=== PATIENT | male | born 1985 | race Caucasian/White ===

== ENCOUNTER 2018-06-17 11:36 | Inpatient (IN) | payer OTHER ==
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
[2018-06-17 12:52] LABS: PLATELET COUNT 210 10^3/uL (150-400)
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
--- NOTE | 2018-06-17 15:31 | ASMTTCLDSP ---
TLC Discharge Disposition Disposition: Answers: Admit Disposition Notes: Notes: Admit 3N. Discharge Concerns/Recommendations: Notes: In consultation with [facility] ED physician, Marito Alba MD and on-call psychiatrist, Stephon Moore MD, both concurred that pt appears to meet 27-65 criteria requiring psychiatric hospitalization as pt appears to be gravely disabled due to a mental illness condition. Pt was given (but refused to sign) the 3N prohibited belongings list while in the ED. Was patient given the Answers: Yes Inpatient Behavioral Health Prohibited Belongings List while in the ED? For inpatient Stephon Moore MD admission, the following psychiatrist agreed to accept patient for admission to Behavioral Health ([facility]): Type of Hold: Answers: M1/72-hour Hold Hold initiated by: Answers: Court Order Date Signed: 06/17/2018 03:31 PM Electronically Signed By:Raúl Martinez
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
[2018-06-17] MEDS ORDERED: ACETAMINOPHEN 325 MG TAB PO PRN (19:29)
[2018-06-17] MEDS ORDERED: MAGNESIUM HYDROXIDE 30 ML UDCUP PO PRN (19:32)
--- NOTE | 2018-06-18 08:52 | PDMN ---
Medical Necessity Medical necessity: Pt meets INPT criteria per MD as of 06/18/18 and [facility] [id number] Other Psychotic Disorders, Adult: Inpatient Care (est. LOS >2 [place] for eval/tx of unspecified schizophrenia spectrum and other psychotic disorder; on M1 hold).
--- NOTE | 2018-06-18 14:20 | ASMTCMCOM ---
CM Note CM Note Notes: Attempted to introduce cc and complete MTP. Patient observed sitting in frontal laid back position, legs john cross position, frontal gaze. Pt then refused discussion and completion of MTP. Date Signed: 06/18/2018 02:19 PM Electronically Signed By:Iram Dorsey
--- NOTE | 2018-06-19 08:46 | BAPA ---
DATE OF SERVICE: 06/18/2018 HISTORY OF PRESENT ILLNESS: The patient is a 33-year-old male with a history of substance dependence and recurrent psychosis. He was brought to the hospital by police after his father obtain ed a court ordered evaluation due to recurrent and severe psychosis. The patient apparently had been declining for several weeks, and had recently lost his job. He was staying at a basement apartment at his father's home, which he had been doing for some time, but had become increasingly agitated. Soumya mccallum was reportedly not sleeping, was unable to obtain food for himself as he was eating as part of his job, and he did not have access to money. The patient states that he has over $7000 in his checking account and that he was well able to get food if he wanted to, but then goes into a partial story abo ut not eating on purpose. He is unable to explain this further. He reportedly was drilling holes in the basement ceiling to somehow access his father's home above. This was due in part to the fact th at his father had locked the doors because patient was yelling and screaming at him at all hours of t he day and night. The patient states that he was doing this because his father is not really his fat her but "just a jenn named James." He states he believes that James has killed his father and taken ove r his body. He states that he believes that James is "some kind of spiritual being" and does not trus t him. He states this is why he was angry at him. He also states that he fashioned a spear himself and believes this spear has some kind of special goode that he can fight off spiritual beings. He h as been walking a perimeter around his father's home with the spear in order to protect it from these beings. When asked if his father is one of those beings and if he might seek to harm his father, he does not answer the question. Patient's father felt in fear of his life, however, which was why he sought the court order. The patient states that he does not believe he has a mental illness and does not require any treatment at this time. When asked about his cannabis use, which has been heavy in the past, he states he is "only using CBDs prescribed by my doctor." He repeatedly denies using any other forms THC. He denies any other drug use. PAST PSYCHIATRIC HISTORY: Significant for 1 previous hospitalization here from 12/11 to 01/15/2015. He was treated by Dr. Yanna Palma at that time. His discharge diagnoses were psychosis, NOS; can nabis use disorder, severe; homeless; unemployment; conflicts with family member and legal problems. He discharged with a GAF of 50. ALLERGIES: No known medical allergies. CURRENT MEDICATIONS: None. PAST MEDICAL HISTORY: Essentially noncontributory. SOCIAL HISTORY: Patient lives in an apartment in the basement of his father's home. The financial a rrangements of that are unknown to me. 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 His father apparently indicated that he was fired, but he states he quit, essentially because he did not want to work there anymore. He r eports having over $7000 in a checking account and having a check card to access that. He denies any legal problems or other stresses at this time. SUBSTANCE ABUSE HISTORY: Patient has a history of heavy cannabis use, though denies any current use. FAMILY HISTORY: Noncontributory per patient's report. ADMISSION LABORATORY: CBC shows a white count up at 9.67 with an H and H up at 18 and 51.5. Serum c hemistries are normal with the exception of a nonfasting glucose up at 147. Lipid profile is normal. Liver function is normal. TSH is not found. Urine drug screen is negative for all substances incl uding marijuana. MENTAL STATUS EXAMINATION: Reveals a very thin male, lying in a hospital bed under the [facility]. I enter with a clinical resident to interview the patient in his room at 11:30. He does wake u p and makes some eye contact. He is able to interact appropriately, though is very guarded, does not answer many questions, and the answers he gives are typically only a few words. His affect is const ricted, stable, and appropriate. His mood is described as "fine." His thought process is linear and goal directed, though he does appear to have either some poverty of thought or internal preoccupatio n and/or blocking, so he has a rather abbreviated thought process. 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 He denies hearing any voices, though does mention several sreedhar es he hears the voices of "spiritual beings" at times. When asked if can communicate with these madison gs, he states, "I can communicate with anyone." He is alert and oriented to person, place, time, and situation, and his sensorium is clear. There is no evidence of intoxication or delirium. The patie nt's intellect appears to be average as evidenced by his fund of knowledge, vocabulary, and education al history. His insight and judgment appear to be poor. He denies any thoughts of suicide, homicide , or violence. 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 The patient is a 33-year-old male with history of recurrent and now probably chronic psycho sis. The origins seem to be in his heavy and chronic cannabis use, though he has negative for that t damir. I do not in any way trust our marijuana screen as it has been obviously wrong numerous times i n the past. Regardless, he is actively psychotic at this time and represents a clear and ongoing as well as imminent risks to his father. He believes his father is a malevolent spiritual being that he has fashioned his own special weapon in order to kill. Why his father did not just call the police instead of seeking a court order, I do not know, but the patient is here under the court order at thi s time. We will continue to evaluate him and make a decision in regard to further involuntary treatm ent at the expiration time. PLAN: 1. One admit to the [facility] inpatient unit on an M1 hold on a court ordered hold. 2. We will offer the patient Zyprexa as a p.r.n., though he is refusing all medicines at this time. 3. We will provide observation and serial clinical interviews to better understand his current situa tion. 4. Eventually, will hopefully conduct family meetings in order to provide better understanding about the dynamic and his discharge plan. Estimated length of stay is 7-10 days. /[id number]/MODL
--- NOTE | 2018-06-19 10:16 | ASMTBHMTP ---
Master Treatment Plan Master Treatment Plan Answers: Impaired Reality for: Date: 06/19/2018 Diagnosis on Admission: Unspecified Schizophrenia Spectrum and Other Psychotic Disorder Expected length of stay: 3-5 Days Reason for admission: Notes: Per [facility] Evaluation - Pt. is a 33 year old, single, unemployed, male with known history of psychosis NOS and cannabis use disorder, brought to [facility] ED on court ordered hold. Pt. reported to sfdc architect that he was not sure who initiated the petition and he did not understand why he was in ED. Per petitioners statement from father, pt was hospitalized and certified in 2015 until May 18, 2017. When he was released, he agreed to take medications voluntarily. Father believes that pt. is no longer taking his medication and since 2017, pt has had sporadic episodes of strange behavior but in the last month, his mental condition has become worse and father has grown very fearful of him. Father reported that pt currently lives in father's home, pt. lives on the first floor and father lives on the second floor. Pt. has his own entrance into the apartment. Father keeps his living area locked due for fear for his own safety. Father reported that pt has not appeared to have showered or shaved in the last couple of weeks and is concerned that pt. has not been eating. 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 To father's knowledge, pt has not been to work in two weeks and believes that pt has last his job and no longer has access to food or money. He sleeps all day and stays up all night. Pt. has stolen multiple items and money from father within the last month. On several occasions, pt has tried to drill through the ceiling to gain access to fathers living area. Pt. has broken doors in his attempts to get in. On a daily basis, father reported that pt yells and scream at father from his apartment and is constantly banding on the brown, going on for more than an hour at a time. When father asks pt. why he wants in, pt will not tell father. This usually occurs in the middle of the night. Father reported that pt has been walking around with a spear which also concerns father greatly. Yesterday morning, pt turned power to the house from the breaker in his living area. Father is afraid to go into pt's apartment to turn the power back on while pt is in the apartment. Without power, father's telephone does not work. Lately, pt has had violent outbursts toward his father and father reports not feeling safe with pt residing apartment above pt. His father locks himself in his own apartment but reports that p. has, on multiple occasions, attempted to break into [facility]'s living quarters. Pt. was tazed by police because he was trying to run away from them Patient's stated presenting problems: Notes: Patient refused to answer Patient's goals for treatment: Notes: Patient refused to answer Patient's strengths: Notes: Patient refused to answer Identify supports outside of hospital: Notes: Patient refused to answer Discharge criteria: Notes: Psychotic symptoms will be reduced or eliminated with return to baseline functioning in affect, thinking and behavior prior to discharge. Initial disposition plan/considerations: Notes: Patient refused to answer Master Treatment Plan Required Signatures Psychiatrist signature: Answers: Jj Angel MD: RN on-shift signature: Answers: RN: Patient signature: Answers: Patient: Date Signed: 06/19/2018 10:15 AM Electronically Signed By:Sapphire Portillo
--- NOTE | 2018-06-19 16:22 | SOAPPROG ---
SOAP Progress Note Assessment/Plan: Assessment: 33 yo man with h/o schizophrenia who has not taken meds in quite awhile. He has been living with [facility] who claims he is afraid of patient's erratic moods and strange behavior. Plan: 06/19/18 16:19 1. Patient states he doesn't need meds b/c he doesn't have a mental health issue. However, he admits a long h/o psychotic disorder and treatment with antipsychotic meds in past. encouraged patient to take Risperdal m-tab at . fully explained the r/b/se's of med. 2. Patient is not attending to ADL's and has not bathed or washed his clothes in quite some time. 3. Will continue to observe patient and try to work with family and OP providers on d/c plan. Subjective: Patient is lying in bed fully dressed with blanket pulled up to his chin. He states that he stopped taking psych meds b/c "both my previous psychiatrists said I didn't need them." He insists that there is "nothing wrong with me" and doesn't need to be on psych meds. Patient is angry with his FOC for calling police. Patient was shutting off power, drilling holes in floor and walking around with sharp objects. FOC stated he had to keep his doors locked out of fear. Objective: Vital Signs Temp Pulse Resp BP Pulse Ox 36.6 C 62 14 99/54 L 97 06/19/18 06:00 06/19/18 06:00 06/19/18 06:00 06/19/18 06:00 06/19/18 06:00 MSE: Affect: Blunted Mood: "Fine" TP: Guarded, paucity, illogical TC: Denies any SI/HI, paranoid delusions present Insight/Judgment: Poor - Time Spent With Patient Time Spent With Patient: 15" - Pending Discharge Pending Discharge Within 24 Hours: No Pending Discharge Within 48 Hours: No ICD10 Worksheet Patient Problems: Problems Problem Status Onset Schizophrenia Acute
[2018-06-19] MEDS: RISPERIDONE 1 MG ODT TAB SL SCH (19:42)
--- NOTE | 2018-06-20 14:30 | ASMTCMCOM ---
CM Note CM Note Notes: Pt. was eating breakfast when CC approached him. Pt. reports feeling "alright". Pt. stated he slept "pretty good". Pt. reports eating well and attending groups; staff report pt. not attending any groups. Pt. reports not taking any medications currently. CC asked pt. about any goals while in the hospital, pt. stated "Not that I'd like to talk about". Pt. denied SI, HI, AVH and paranoia. CC asked pt. when he will stay upon discharge, pt. stated "chelle private". Pt. stated he is currently seeing a therapist and has an upcoming appointment. Pt. declined to stated when this appointment is and who it is with. Pt. presents as alert, very guarded, paranoid, with fair eye contact and lacking insight. Staff report pt. sleeping 6 hours and being withdrawn. Date Signed: 06/20/2018 02:29 PM Electronically Signed By:Sapphire Portillo
--- NOTE | 2018-06-20 16:19 | SOAPPROG ---
SOAP Progress Note Assessment/Plan: Assessment: 33 yo man with h/o schizophrenia who has not taken meds in quite awhile. He has been living with [facility] who claims he is afraid of patient's erratic moods and strange behavior. Plan: 06/19/18 16:19 1. Patient states he doesn't need meds b/c he doesn't have a mental health issue. However, he admits a long h/o psychotic disorder and treatment with antipsychotic meds in past. MD encouraged patient to take Risperdal m-tab at . MD fully explained the r/b/se's of med. 2. Patient is not attending to ADL's and has not bathed or washed his clothes in quite some time. 3. Will continue to observe patient and try to work with family and OP providers on d/c plan. PLAN: 06/20/18 16:15 1. Patient refused Risperdal last night. 2. Patient took 2 showers today. Wearing same clothes, but hair is alley cleaner. 3. Patient came out of room briefly for meals and watched a little TV in afternoon. Not attending groups. 4. MD looked in chart for M1, but only found Order for Psychiatric evaluation that was issued by [facility] on 06/16/18. MD requested staff clarify patient's legal status with court on Thursday. 5. Patient continues to be psychotic and gravely disabled and requires further inpatient stabilization. Subjective: Patient came out of his room briefly to watch a little TV. He also ate his meals in dining area. Otherwise, patient has isolated in his room. He did take 2 showers today, but has no change of clothes. He refused Risperdal last night and claims he doesn't need to be on meds according to "my last two psychiatrists." Patient has not taken meds or had a psychiatric appointment in quite a while. is still trying to get records from [facility], but it doesn't appear like patient is currently an open client with [facility]. Objective: Vital Signs Temp Pulse Resp BP Pulse Ox 36.6 C 62 14 99/54 L 97 06/19/18 06:00 06/19/18 06:00 06/19/18 06:00 06/19/18 06:00 06/19/18 06:00 MSE: Affect: Flat Mood: "OK" TP: Disorganized, illogical, paranoid TC: Denies any SI/HI Insight/Judgment: Impaired - Time Spent With Patient Time Spent With Patient: 15" - Pending Discharge Pending Discharge Within 24 Hours: No Pending Discharge Within 48 Hours: No ICD10 Worksheet Patient Problems: Problems Problem Status Onset Schizophrenia Acute
[2018-06-20] MEDS: RISPERIDONE 1 MG ODT TAB SL SCH (20:19)
--- NOTE | 2018-06-21 13:20 | ASMTCMCOM ---
CM Note CM Note Notes: Attempted to meet with patient to discuss progress and dc plan pt guarded stated "its private" and refused discussion Date Signed: 06/21/2018 01:19 PM Electronically Signed By:Iram Dorsey
--- NOTE | 2018-06-21 15:53 | SOAPPROG ---
SOAP Progress Note Assessment/Plan: Assessment: Plan: 06/21/18 15:54 Psychosis: Remains quiet ill. Will petition for involuntary medications. Subjective: Pt seen, discussed with staff, chart reviewed. He continues to isolate in his room, refusing to interact with others or participate in therapies. Refuses all medications. I attempted to interview him, but he refused to come out from under the sheets. I discussed with/to him that he was on a STC at this point due to his mental illness and that I believe medications are medically necessary. I asked him repeatedly if he had any questions or preferences and he did not answer. I then informed him I would be petitioning the court for involuntary medications and he again did not reply. Objective: Vital Signs Temp Pulse Resp BP Pulse Ox 36.7 C 70 14 103/57 L 96 06/21/18 06:00 06/21/18 06:00 06/21/18 06:00 06/21/18 06:00 06/21/18 06:00 MSE: Lying in bed under sheet. Peeks head out once to reveal disheveled hair, ability to make eye contact. Does not speak or answer questions. Unable to assess current thought process or level of psychosis. - Time Spent With Patient Time Spent With Patient: 15" ICD10 Worksheet Patient Problems: Problems Problem Status Onset Schizophrenia Acute
[2018-06-21] MEDS: RISPERIDONE 1 MG ODT TAB SL SCH (18:46)
--- NOTE | 2018-06-22 17:33 | SOAPPROG ---
SOAP Progress Note Assessment/Plan: Assessment: Plan: 06/21/18 15:54 Psychosis: Remains quiet ill. Will petition for involuntary medications. 06/22/18 17:32 Psychosis: No change in clinical condition. Continues to refuse antipsychotic medications. Letter for COM submitted. Subjective: Pt seen, discussed with staff. Remains isolative, paranoid, internally focused. Continues to refuse to interact with staff. Took a three hour shower this morning, refusing to respond to staff's questions. Eating poorly. Objective: Vital Signs Temp Pulse Resp BP Pulse Ox 36.6 C 62 15 96/51 L 96 06/22/18 06:00 06/22/18 06:00 06/22/18 06:00 06/22/18 06:00 06/22/18 06:00 MSE: In shower. Refuses to answer questions. - Time Spent With Patient Time Spent With Patient: 15" ICD10 Worksheet Patient Problems: Problems Problem Status Onset Schizophrenia Acute
[2018-06-22] MEDS: RISPERIDONE 1 MG ODT TAB SL SCH (19:01)
[2018-06-23] MEDS: NICOTINE POLACRILEX 2 MG GUM B PRN ×3 (11:03→19:01)
--- NOTE | 2018-06-23 11:30 | ASMTCMCOM ---
CM Note CM Note Notes: The patient participated in clinical treatment team rounds;the team discussed his plan of care including decreasing psychotic symptoms and paranoia. The patient denied symptoms and has been refusing medication; a [facility] letter was sent 06/22/18. With regard to psychiatric medications, the patient stated "They shrink your brain, cause severe issues with metabolism, and problems with heart health; I prefer more holistic measures." The patient requested that we do not contact his OP team at [facility] because he would like to keep his providers separate. The patient reported that prior to admission, the patient's father was "shooting holes in the wall and floor. He seemed to be processing other people's thoughts and is a different person. I've seen him go through these stages several times in his life." He denied harboring ill will toward his father; who raised concern due to the patient's spear being in the household. The patient stated, "That's just my spear that I carry around. It's just a spear." Date Signed: 06/23/2018 11:30 AM Electronically Signed By:Joanne Charlton
--- NOTE | 2018-06-23 13:13 | SOAPPROG ---
SOAP Progress Note Assessment/Plan: Assessment: Plan: 06/21/18 15:54 Psychosis: Remains quiet ill. Will petition for involuntary medications. 06/22/18 17:32 Psychosis: No change in clinical condition. Continues to refuse antipsychotic medications. Letter for COM submitted. 06/23/18 13:14 Psychosis: REmains psychotic. Refuses all meds. [facility]. Await COM hearing. Subjective: Pt seen, discussed with staff, interviewed in Treatment Team meeting. He is more interactive today, though is oppositional, argumentative in meeting. He repeatedly asks why we are holding him or what symptoms he has that we want to treat with meds. He continues to refuse psychotropic meds stating, "I want something wholistic." He refuses to allow us to involve his father or MHP's. He states his father is "mentally decayed" and unable to participate. He states he wants to "keep my mom at a distance." Continues to refuse meds and generally isolate in his room. Objective: Vital Signs Temp Pulse Resp BP Pulse Ox 36.5 C 63 14 91/53 L 96 06/23/18 06:00 06/23/18 06:00 06/23/18 06:00 06/23/18 06:00 06/23/18 06:00 Poorly groomed, guarded, oppositional. Affect is constricted, stable. Mood is "bad." TP is generally disorganized. TC reveals continued paranoia, especially in regards to his parents and treatment team. - Time Spent With Patient Time Spent With Patient: 25" ICD10 Worksheet Patient Problems: Problems Problem Status Onset Schizophrenia Acute
[2018-06-23] MEDS: RISPERIDONE 1 MG ODT TAB SL SCH (20:47)
--- NOTE | 2018-06-24 11:08 | SOAPPROG ---
SOAP Progress Note Assessment/Plan: Assessment: Plan: 06/21/18 15:54 Psychosis: Remains quiet ill. Will petition for involuntary medications. 06/22/18 17:32 Psychosis: No change in clinical condition. Continues to refuse antipsychotic medications. Letter for COM submitted. 06/23/18 13:14 Psychosis: REmains psychotic. Refuses all meds. [facility]. Await COM hearing. 06/24/18 11:06 Psychosis: Calmer, though remains paranoid, guarded, non-compliant. Will continue to offer meds, await COM hearing. Subjective: Pt seen, discussed with staff. Remains argumentative and oppositional. Continues to refuse medications. Denies any psychiatric sx's. Continues to state he is being persecuted by his father. Objective: Vital Signs Temp Pulse Resp BP Pulse Ox 36.7 C 60 16 99/71 L 98 06/24/18 06:00 06/24/18 06:00 06/24/18 06:00 06/24/18 06:00 06/24/18 06:00 MSE: Guarded, anxious, oppositional. Affect is constricted, stable. Mood is "fine." TP is perseverative, refuses to answer most question, argumentative. TC reveals continued paranoia, AH's. - Time Spent With Patient Time Spent With Patient: 15" ICD10 Worksheet Patient Problems: Problems Problem Status Onset Schizophrenia Acute
--- NOTE | 2018-06-24 12:50 | ASMTCMCOM ---
CM Note CM Note Notes: Ct. was in bed when CC entered his room. Ct. said that he is doing OK but was not interested in engaging in conversation beyond that. Date Signed: 06/24/2018 12:47 PM Electronically Signed By:Nancy Schmitt
[2018-06-24] MEDS: NICOTINE POLACRILEX 2 MG GUM B PRN ×3 (13:20→17:39)
[2018-06-24] MEDS: RISPERIDONE 1 MG ODT TAB SL SCH (20:13)
[2018-06-25] MEDS: NICOTINE POLACRILEX 2 MG GUM B PRN ×4 (11:00→22:24)
--- NOTE | 2018-06-25 12:18 | ASMTCMCOM ---
CM Note CM Note Notes: The patient refused to speak with this designer/writer. This designer/writer observed that the patient's brown and ceilings were adorned with pieces of paper and tissue using an unknown substance that causes something to adhere. The nurse and mental health worker were notified and the paper was removed for safety purposes. Staff explained to the patient that he is not being monitored in his room or bathroom. The patient did not explain whether the paper was positioned purposefully. Date Signed: 06/25/2018 12:07 PM Electronically Signed By:Joanne Charlton
--- NOTE | 2018-06-25 16:21 | SOAPPROG ---
SOAP Progress Note Assessment/Plan: Assessment: Plan: 06/21/18 15:54 Psychosis: Remains quiet ill. Will petition for involuntary medications. 06/22/18 17:32 Psychosis: No change in clinical condition. Continues to refuse antipsychotic medications. Letter for [employer] submitted. 06/23/18 13:14 Psychosis: REmains psychotic. Refuses all meds. [facility]. Await [employer] hearing. 06/24/18 11:06 Psychosis: Calmer, though remains paranoid, guarded, non-compliant. Will continue to offer meds, await [employer] hearing. 06/25/18 16:21 Psychosis: Uncooperative. [facility]. Await [employer] hearing. Now postponed until later in the week. Subjective: Pt seen, discussed with staff. Lying in his bed with his eyes closed masturbating. Does not respond to my questions or verbal prompts. Refuses to interact. REmains oppositional with staff. Unclear if his estate planning attorney was able to contact him. Objective: Vital Signs Temp Pulse Resp BP Pulse Ox 36.5 C 68 14 100/59 L 98 06/25/18 06:00 06/25/18 06:00 06/25/18 06:00 06/25/18 06:00 06/25/18 06:00 MSE: Disheveled, lying in bed. Eyes closed, non-responsive. Masturbating openly, uncovered. - Time Spent With Patient Time Spent With Patient: 15" ICD10 Worksheet Patient Problems: Problems Problem Status Onset Schizophrenia Acute
[2018-06-25] MEDS: RISPERIDONE 1 MG ODT TAB SL SCH (18:39)
--- NOTE | 2018-06-26 07:51 | SOAPPROG ---
JUD Progress Note Assessment/Plan: Assessment: 33yo with schizoaffective d/o, refusing meds 06/26/18 11:59 Slept 9.5hr. has been nude in room, masturbating, sticking things on brown, flooding floors, taking meal tray in room against instructions, lying in bed in manner such as if "mooning" staff during room checks. refusing psychotropic meds. discussed options with staff. decided to start on behavior plan with reverse room lock mo during meal times and group times. denied any physical c/o. denied AH/SI. not interested in engaging in interview except to request multivitamins, vit D3, Calcium, omega 3 FA, and nicotine patch. PLAN: cont to offer meds. Risp 1mg hs. not taking. okay MVI. nicotine patch if prefers to gum has COM hearing next week Objective: Vital Signs Temp Pulse Resp BP Pulse Ox 36.5 C 71 16 111/64 96 06/26/18 06:00 06/26/18 06:00 06/26/18 06:00 06/26/18 06:00 06/26/18 06:00 - Time Spent With Patient Time Spent With Patient: 10min - Pending Discharge Pending Discharge Within 24 Hours: No Pending Discharge Within 48 Hours: No ICD10 Worksheet Patient Problems: Problems Problem Status Onset Schizophrenia Acute
[2018-06-26] MEDS: NICOTINE POLACRILEX 2 MG GUM B PRN ×3 (09:11→19:21)
[2018-06-26] MEDS: NICOTINE 7 MG/24 HR PATCH TD SCH (12:23)
--- NOTE | 2018-06-26 15:45 | ASMTCMCOM ---
CM Note CM Note Notes: Pt. declined to meet with CC. Staff report pt. sleeping 9.5 hours and needing a reverse room restriction due to his behaviors today. Date Signed: 06/26/2018 03:45 PM Electronically Signed By:Sapphire Portillo
[2018-06-26] MEDS: RISPERIDONE 1 MG ODT TAB SL SCH (21:55)
[2018-06-27] MEDS: NICOTINE POLACRILEX 2 MG GUM B PRN ×4 (00:06→12:25)
[2018-06-27] MEDS: MELATONIN 3 MG TAB PO PRN (00:06)
[2018-06-27] MEDS: MULTIVITAMINS 1 EACH TAB PO SCH (09:00)
[2018-06-27] MEDS: OLANZapine 5 MG TAB PO PRN (10:23)
[2018-06-27] MEDS: NICOTINE 7 MG/24 HR PATCH TD SCH (10:49)
[2018-06-27] MEDS: RISPERIDONE 1 MG ODT TAB SL SCH (12:26)
--- NOTE | 2018-06-27 15:05 | ASMTCMCOM ---
CM Note CM Note Notes: Pt. refused to speak to CC. Pt. gave a thumbs up when asked if he slept well. Pt. nodded yes when asked if he is getting enough to eat. Pt. stopped responding to CC at this point. CC later approached pt. to sign an WILTON for his father, to confirm that pt. is allowed back home. Pt. stated "it's my hosue" and refused to sign WILTON at this time. Pt. presents as alert, very guarded, selectively mute, uncooperative, and lacking insight. Staff report pt. sleeping 5 hours and refusing his Risperdal last night. Pt. is also on several restrictions including a reverse room and gum restriction. Date Signed: 06/27/2018 03:05 PM Electronically Signed By:Sapphire Portillo
[2018-06-27] MEDS: LORazepam 0.5 MG TAB PO PRN (16:06)
--- NOTE | 2018-06-27 19:26 | SOAPPROG ---
SOAP Progress Note Assessment/Plan: Assessment: 33yo with schizoaffective d/o, refusing meds 06/26/18 11:59 Slept 9.5hr. has been nude in room, masturbating, sticking things on brown, flooding floors, taking meal tray in room against instructions, lying in bed in manner such as if "mooning" staff during room checks. refusing psychotropic meds. discussed options with staff. decided to start on behavior plan with reverse room lock mo during meal times and group times. denied any physical c/o. denied AH/SI. not interested in engaging in interview except to request multivitamins, vit D3, Calcium, omega 3 FA, and nicotine patch. PLAN: cont to offer meds. Risp 1mg hs. not taking. okay MVI. nicotine patch if prefers to gum has COM hearing next week 06/27/18 19:18 slept 5hr actually accepted offer of zyprexa 5mg prn this AM. sleepy by midday. requiring limits around misusing TV controls. lying on floor by wall in hallway "resting" and asking for wellbutrin. stronger nicotine gum. fair eye contact. mood "fine" affect constricted. denied AH. denied SI. dismissive of conversation and attempt for interview. not appearing to respond to internal stimuli. PLAN: cont to offer meds. offer Risp 1mg bid, since indicated he may try med in AM. d/c patch. prefers to continue with gum, wants stronger gum. was using gum to stick things onto brown, now must turn in gum for next piece. requesting hourly. has COM hearing next week cont on reverse room lock. adding no writing utensils since room/safety checks revealed pt hiding pencils from art group Objective: Vital Signs Temp Pulse Resp BP Pulse Ox 36.7 C 76 14 111/67 94 06/27/18 06:00 06/27/18 06:00 06/27/18 06:00 06/27/18 06:00 06/27/18 06:00 - Time Spent With Patient Time Spent With Patient: 15min - Pending Discharge Pending Discharge Within 24 Hours: No Pending Discharge Within 48 Hours: No ICD10 Worksheet Patient Problems: Problems Problem Status Onset Schizophrenia Acute
[2018-06-28] MEDS: MULTIVITAMINS 1 EACH TAB PO SCH (08:57)
[2018-06-28] MEDS: OLANZapine 5 MG TAB PO PRN ×2 (08:58→16:30)
[2018-06-28] MEDS: NICOTINE POLACRILEX 2 MG GUM B PRN ×6 (08:59→20:53)
[2018-06-28] MEDS: RISPERIDONE 1 MG ODT TAB SL SCH ×3 (09:11→17:44)
[2018-06-28] MEDS: LORazepam 0.5 MG TAB PO PRN ×3 (10:57→20:54)
--- NOTE | 2018-06-28 11:21 | SOAPPROG ---
SOAP Progress Note Assessment/Plan: Assessment: Plan: 06/21/18 15:54 Psychosis: Remains quiet ill. Will petition for involuntary medications. 06/22/18 17:32 Psychosis: No change in clinical condition. Continues to refuse antipsychotic medications. Letter for COM submitted. 06/23/18 13:14 Psychosis: REmains psychotic. Refuses all meds. [facility]. Await COM hearing. 06/24/18 11:06 Psychosis: Calmer, though remains paranoid, guarded, non-compliant. Will continue to offer meds, await COM hearing. 06/25/18 16:21 Psychosis: Uncooperative. [facility]. Await COM hearing. Now postponed until later in the week. 06/28/18 11:21 Psychosis: No change. Will continue to offer scheduled Risperdal and PRN Zyprexa. Await hearing for COM. Continue behavioral plan. Subjective: Pt seen, discussed with staff, chart reviewed. Events of weekend noted. Placed on reverse room protocol with some benefit inc: decreased sexual acting out, less vandalism. He refuses to talk to me stating he is "waiting for the dog" (service animal.) He does listen when I talk to him about the upcoming involuntary meds hearing on 07/06/18. He has taken several doses of Zyprexa or Risperdal over the weekend and I discussed with him the possibility of continuing these on a voluntary or stipulated basis. He states he will "think about it." Objective: Vital Signs Temp Pulse Resp BP Pulse Ox 36.4 C 76 16 101/61 98 06/28/18 06:00 06/28/18 06:00 06/28/18 06:00 06/28/18 06:00 06/28/18 06:00 MSE: Calm, guarded. Sitting in day room. Affect is constricted, stable. Mood is "OK." TP abbreviated. TC reveals continued paranoia, internal preoccupation. - Time Spent With Patient Time Spent With Patient: 15" ICD10 Worksheet Patient Problems: Problems Problem Status Onset Schizophrenia Acute
--- NOTE | 2018-06-28 11:51 | ASMTCMCOM ---
CM Note CM Note Notes: Pt. refused to speak with CC. Pt. only nodded yes or no to all questions. Pt. nodded yes to getting enough to eat. Pt. nodded yes to sleeping well and attending groups. Pt. shrugged when asked if there were any issues with his medications. Pt. nodded no to SI, HI, AVH and paranoia. Pt. stopped responding to CC at this point. Pt. presents as alert, very guarded, selectively mute, uncooperative and lacking eye contact. Staff report pt. sleeping 12 hours, hiding items around the unit, and taking only some of his medications. Date Signed: 06/28/2018 11:50 AM Electronically Signed By:Sapphire Portillo
[2018-06-29] MEDS: MULTIVITAMINS 1 EACH TAB PO SCH (09:13)
[2018-06-29] MEDS: RISPERIDONE 1 MG ODT TAB SL SCH ×2 (09:13→21:06)
[2018-06-29] MEDS: NICOTINE POLACRILEX 2 MG GUM B PRN (09:17)
[2018-06-29] MEDS: LORazepam 0.5 MG TAB PO PRN ×3 (11:58→21:09)
--- NOTE | 2018-06-29 13:00 | ASMTCMCOM ---
CM Note CM Note Notes: Pt. refused to speak with CC. Pt. nodded his head yes or no when asked questions. Pt. nodded yes when asked if he is sleeping well and attending groups. Pt. nodded yes when asked if he needs more food on his trays. Pt. nodded no when asked if there are any issues with his medications. Pt nodded no to SI, HI, AVH and paranoia. CC explained to pt. the need for him to participate in his treatment and encouraged him to speak with the CC tomorrow. Pt. presents as alert, guarded, resistive to treatment, and lacking insight. Staff report pt. sleeping 7.5 hours. Date Signed: 06/29/2018 12:53 PM Electronically Signed By:Sapphire Portillo
[2018-06-29] MEDS: OLANZapine 5 MG TAB PO PRN (15:29)
--- NOTE | 2018-06-29 16:59 | SOAPPROG ---
SOAP Progress Note Assessment/Plan: Assessment: Plan: 06/21/18 15:54 Psychosis: Remains quiet ill. Will petition for involuntary medications. 06/22/18 17:32 Psychosis: No change in clinical condition. Continues to refuse antipsychotic medications. Letter for COM submitted. 06/23/18 13:14 Psychosis: REmains psychotic. Refuses all meds. [facility]. Await COM hearing. 06/24/18 11:06 Psychosis: Calmer, though remains paranoid, guarded, non-compliant. Will continue to offer meds, await COM hearing. 06/25/18 16:21 Psychosis: Uncooperative. [facility]. Await COM hearing. Now postponed until later in the week. 06/28/18 11:21 Psychosis: No change. Will continue to offer scheduled Risperdal and PRN Zyprexa. Await hearing for COM. Continue behavioral plan. 06/29/18 17:01 Psychosis: No change. Will [facility]. Await hearing for COM. Will observe as pt is more compliant with voluntary meds to determine whether or not he will regain capacity. Continue behavioral plan to limit acting out and vandalism. Subjective: Pt seen, discussed with staff. Out in dayroom per behavioral protocol, though minimally interactive with others. Refuses to talk to me again today. Refuses to allow me to talk to his mother who called today and asked for a call back. Refuses to discuss treatment. Has taken several more doses of PRN Zyprexa and the last five scheduled doses of Risperdal. Objective: Vital Signs Temp Pulse Resp BP Pulse Ox 36.6 C 73 14 108/53 L 95 06/29/18 06:00 06/29/18 06:00 06/29/18 06:00 06/29/18 06:00 06/29/18 06:00 MSE: Guarded, tense. Mute, refusing to talk to me or answer questions. Affect is constricted, stable. Mood is not stated. Appears to attend to IS. - Time Spent With Patient Time Spent With Patient: 15" ICD10 Worksheet Patient Problems: Problems Problem Status Onset Schizophrenia Acute
[2018-06-29] MEDS: MELATONIN 3 MG TAB PO PRN (21:09)
[2018-06-30] MEDS: NICOTINE POLACRILEX 2 MG GUM B PRN ×6 (07:29→19:54)
[2018-06-30] MEDS: RISPERIDONE 1 MG ODT TAB SL SCH ×3 (07:29→19:48)
[2018-06-30] MEDS: MULTIVITAMINS 1 EACH TAB PO SCH (07:29)
[2018-06-30] MEDS: LORazepam 0.5 MG TAB PO PRN ×2 (11:09→15:35)
[2018-06-30] MEDS: NICOTINE 21 MG/24 HR PATCH TD SCH (11:58)
[2018-06-30] MEDS: MAG HYDROX/AL HYDROX/SIMETH 30 ML UDCUP PO PRN ×2 (12:22→19:58)
--- NOTE | 2018-06-30 14:18 | ASMTCMCOM ---
CM Note CM Note Notes: Client still would not like to speak to this underwriter solicitation director. Court set for COM for next week. Date Signed: 06/30/2018 02:18 PM Electronically Signed By:Wilfrido Mcclain
[2018-06-30] MEDS: OLANZapine 5 MG TAB PO PRN (14:48)
--- NOTE | 2018-06-30 15:39 | SOAPPROG ---
SOAP Progress Note Assessment/Plan: Assessment: Plan: 06/21/18 15:54 Psychosis: Remains quiet ill. Will petition for involuntary medications. 06/22/18 17:32 Psychosis: No change in clinical condition. Continues to refuse antipsychotic medications. Letter for COM submitted. 06/23/18 13:14 Psychosis: REmains psychotic. Refuses all meds. [facility]. Await COM hearing. 06/24/18 11:06 Psychosis: Calmer, though remains paranoid, guarded, non-compliant. Will continue to offer meds, await COM hearing. 06/25/18 16:21 Psychosis: Uncooperative. [facility]. Await COM hearing. Now postponed until later in the week. 06/28/18 11:21 Psychosis: No change. Will continue to offer scheduled Risperdal and PRN Zyprexa. Await hearing for COM. Continue behavioral plan. 06/29/18 17:01 Psychosis: No change. Will [facility]. Await hearing for COM. Will observe as pt is more compliant with voluntary meds to determine whether or not he will regain capacity. Continue behavioral plan to limit acting out and vandalism. 06/30/18 15:39 Psychosis: Unchanged. [facility]. Await COM hearing. Subjective: Pt seen, discussed with staff. Refuses to talk to me or attend Treatment Team meeting. States, "I would prefer not" when asked. Sitting in day room, curled up in a ball in chair. Not interacting with others. Objective: Vital Signs Temp Pulse Resp BP Pulse Ox 36.6 C 69 14 106/55 L 94 06/30/18 06:00 06/30/18 06:00 06/30/18 06:00 06/30/18 06:00 06/30/18 06:00 MSE: Disheveled, guarded, uncoop. Affect is constricted, stable. Mood is not stated. TP is disorganized. TC reveals AH's/RIS, paranoia. Insight and judgment remain very poor. - Time Spent With Patient Time Spent With Patient: 15" ICD10 Worksheet Patient Problems: Problems Problem Status Onset Schizophrenia Acute
[2018-06-30] MEDS: PATCH REMOVAL 1 EA PATCH TD SCH (19:52)
[2018-07-01] MEDS: LORazepam 0.5 MG TAB PO PRN ×4 (08:09→20:28)
[2018-07-01] MEDS: NICOTINE 21 MG/24 HR PATCH TD SCH (08:09)
[2018-07-01] MEDS: MULTIVITAMINS 1 EACH TAB PO SCH (08:09)
[2018-07-01] MEDS: MAG HYDROX/AL HYDROX/SIMETH 30 ML UDCUP PO PRN ×3 (08:18→23:21)
[2018-07-01] MEDS: RISPERIDONE 1 MG ODT TAB SL SCH ×2 (08:35→21:55)
[2018-07-01] MEDS: buPROPion XL 150 MG TAB PO SCH (12:33)
[2018-07-01] MEDS: OMEGA-3 FATTY ACIDS 1,000 MG CAP PO SCH (12:33)
--- NOTE | 2018-07-01 14:17 | ASMTCMCOM ---
CM Note CM Note Notes: The patient reported wanting to meet with his street sweeper operator when she called to discussing visiting him on the unit; when the street sweeper operator arrived to meet with the patient he declined to meet with her. The patient is inconsistently complying with medication including this morning when the patient complied with the risperdal dose. The patient did not demonstrate insight into his upcoming court proceeding for court ordered treatment. He requested additional medications including Wellbutrin and vitamins. The patient is adhering to his room restriction; he reports attending groups. The patient is not a reliable historian at this time. Date Signed: 07/01/2018 02:17 PM Electronically Signed By:Joanne Charlton
[2018-07-01] MEDS: NICOTINE POLACRILEX 2 MG GUM B PRN ×5 (14:46→23:21)
--- NOTE | 2018-07-01 15:55 | SOAPPROG ---
SOAP Progress Note Assessment/Plan: Assessment: Plan: 06/21/18 15:54 Psychosis: Remains quiet ill. Will petition for involuntary medications. 06/22/18 17:32 Psychosis: No change in clinical condition. Continues to refuse antipsychotic medications. Letter for COM submitted. 06/23/18 13:14 Psychosis: REmains psychotic. Refuses all meds. [facility]. Await COM hearing. 06/24/18 11:06 Psychosis: Calmer, though remains paranoid, guarded, non-compliant. Will continue to offer meds, await COM hearing. 06/25/18 16:21 Psychosis: Uncooperative. [facility]. Await COM hearing. Now postponed until later in the week. 06/28/18 11:21 Psychosis: No change. Will continue to offer scheduled Risperdal and PRN Zyprexa. Await hearing for COM. Continue behavioral plan. 06/29/18 17:01 Psychosis: No change. Will [facility]. Await hearing for COM. Will observe as pt is more compliant with voluntary meds to determine whether or not he will regain capacity. Continue behavioral plan to limit acting out and vandalism. 06/30/18 15:39 Psychosis: Unchanged. [facility]. Await COM hearing. 07/01/18 15:58 Psychosis: Improved with Risperdal. 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 Subjective: Pt seen, discussed with staff. Asked to talk to me about "vitamins." He states he used to take B complex, [place] 3, Ca, vitamin D, and Wellbutrin. He interacts reasonably well, referring to his notes. He remains disorganized, however, frequently derailing and needing help returning to topic. He continues to state he will return to his father's home on d/c but believes his father has been replaced by a spiritual being named James or Satish and needs to leave the home so he can live there alone. He states he owns the house outright and deserves to live there alone. Continues to take Risperdal and occasional Zyprexa PRN. Objective: Vital Signs Temp Pulse Resp BP Pulse Ox 36.7 C 64 14 99/51 L 94 07/01/18 06:00 07/01/18 06:00 07/01/18 06:00 07/01/18 06:00 10/04/18 06:00 - Time Spent With Patient Time Spent With Patient: 25" ICD10 Worksheet Patient Problems: Problems Problem Status Onset Schizophrenia Acute
[2018-07-01] MEDS: MELATONIN 3 MG TAB PO PRN (21:57)
[2018-07-01] MEDS: PATCH REMOVAL 1 EA PATCH TD SCH (22:09)
[2018-07-02] MEDS: NICOTINE 21 MG/24 HR PATCH TD SCH ×2 (06:20→08:25)
[2018-07-02] MEDS: NICOTINE POLACRILEX 2 MG GUM B PRN ×4 (06:22→21:21)
[2018-07-02] MEDS: buPROPion XL 150 MG TAB PO SCH (08:25)
[2018-07-02] MEDS: RISPERIDONE 1 MG ODT TAB SL SCH ×4 (08:25→23:23)
[2018-07-02] MEDS: OMEGA-3 FATTY ACIDS 1,000 MG CAP PO SCH (08:25)
[2018-07-02] MEDS: MULTIVITAMINS 1 EACH TAB PO SCH (08:25)
[2018-07-02] MEDS: LORazepam 0.5 MG TAB PO PRN ×3 (08:29→21:20)
[2018-07-02] MEDS: MAG HYDROX/AL HYDROX/SIMETH 30 ML UDCUP PO PRN ×2 (10:05→21:20)
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
[2018-07-02] MEDS: PATCH REMOVAL 1 EA PATCH TD SCH (22:19)
[2018-07-02] MEDS: MELATONIN 3 MG TAB PO PRN (22:21)
[2018-07-03] MEDS: MULTIVITAMINS 1 EACH TAB PO SCH (07:44)
[2018-07-03] MEDS: OMEGA-3 FATTY ACIDS 1,000 MG CAP PO SCH (07:44)
--- NOTE | 2018-07-03 07:51 | SOAPPROG ---
SOAP Progress Note Assessment/Plan: Assessment: Plan: 06/21/18 15:54 Psychosis: Remains quiet ill. Will petition for involuntary medications. 06/22/18 17:32 Psychosis: No change in clinical condition. Continues to refuse antipsychotic medications. Letter for COM submitted. 06/23/18 13:14 Psychosis: REmains psychotic. Refuses all meds. [facility]. Await COM hearing. 06/24/18 11:06 Psychosis: Calmer, though remains paranoid, guarded, non-compliant. Will continue to offer meds, await COM hearing. 06/25/18 16:21 Psychosis: Uncooperative. [facility]. Await COM hearing. Now postponed until later in the week. 06/28/18 11:21 Psychosis: No change. Will continue to offer scheduled Risperdal and PRN Zyprexa. Await hearing for COM. Continue behavioral plan. 06/29/18 17:01 Psychosis: No change. Will [facility]. Await hearing for COM. Will observe as pt is more compliant with voluntary meds to determine whether or not he will regain capacity. Continue behavioral plan to limit acting out and vandalism. 06/30/18 15:39 Psychosis: Unchanged. [facility]. Await COM hearing. 07/01/18 15:58 Psychosis: Improved with Risperdal. 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 07/03/18 07:52 Psychosis: Gradual improvement. [facility]. Subjective: LATE ENTRY FOR 06/02/18. Pt seen discussed with staff. Remains rather aloof, rarely interacting with others. Out in day room per behavioral plan. No acting out. Generally compliant with meds. No SE's noted. Objective: Vital Signs Temp Pulse Resp BP Pulse Ox 36.9 C 94 16 111/64 94 07/03/18 06:00 07/03/18 06:00 07/03/18 06:00 07/03/18 06:00 07/03/18 06:00 MSE: Marginally groomed, calm and coop. Affect is constricted, stable. Mood is "fine." TP is generally linear, though remains internally focused. TC reveals continued paranoid and grandiose delusions, IOR's. - Time Spent With Patient Time Spent With Patient: 15" ICD10 Worksheet Patient Problems: Problems Problem Status Onset Schizophrenia Acute
[2018-07-03] MEDS: buPROPion XL 150 MG TAB PO SCH (07:52)
[2018-07-03] MEDS: RISPERIDONE 1 MG ODT TAB SL SCH ×2 (07:52→20:55)
[2018-07-03] MEDS: LORazepam 0.5 MG TAB PO PRN ×4 (07:56→20:58)
[2018-07-03] MEDS: NICOTINE POLACRILEX 2 MG GUM B PRN ×5 (07:57→17:54)
[2018-07-03] MEDS: MAG HYDROX/AL HYDROX/SIMETH 30 ML UDCUP PO PRN ×2 (10:33→20:58)
--- NOTE | 2018-07-03 16:37 | SOAPPROG ---
SOAP Progress Note Assessment/Plan: Assessment: 33 yo man with h/o schizophrenia who has not taken meds in quite awhile. He has been living with [facility] who claims he is afraid of patient's erratic moods and strange behavior. Per Dr. Moore's recent note: 06/28/18 11:21 Psychosis: No change. Will continue to offer scheduled Risperdal and PRN Zyprexa. Await hearing for COM. Continue behavioral plan. 06/29/18 17:01 Psychosis: No change. Will [facility]. Await hearing for COM. Will observe as pt is more compliant with voluntary meds to determine whether or not he will regain capacity. Continue behavioral plan to limit acting out and vandalism. 06/30/18 15:39 Psychosis: Unchanged. [facility]. Await COM hearing. 07/01/18 15:58 Psychosis: Improved with Risperdal. 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 07/03/18 07:52 Psychosis: Gradual improvement. [facility]. Subjective: LATE ENTRY FOR 06/02/18. Pt seen discussed with staff. Remains rather aloof, rarely interacting with others. Out in day room per behavioral plan. No acting out. Generally compliant with meds. No SE's noted. PLAN: 07/03/18 16:33 1. Patient refused Risperdal this AM b/c it was in a different colored package. But he also said he wouldn't take it b/c it "causes me seizures." 2. Awaiting COM hearing on Thu07/05/18. 3. Still delusions about FOC refuses to have family meeting to plan d/c. 4. [facility] Subjective: Patient present in milieu d/t out of room program. He is on behavioral support plan to minimize his sexually inappropriate behavior and vandalism. He has been cooperative with plan this weekend. He refused to take Risperdal this AM and gave contradictory reasons. He has court hearing on Thursday for involuntary medications. Objective: Vital Signs Temp Pulse Resp BP Pulse Ox 36.9 C 94 16 111/64 94 07/03/18 06:00 07/03/18 06:00 07/03/18 06:00 07/03/18 06:00 07/03/18 06:00 MSE: Affect: Flat Mood: "OK" TP: Disorganized, illogical (meds "give me seizures" even though he's taken same med all week) TC: Denies SI/HI Insight/ Judgment: Impaired - Time Spent With Patient Time Spent With Patient: 15" - Pending Discharge Pending Discharge Within 24 Hours: No Pending Discharge Within 48 Hours: No ICD10 Worksheet Patient Problems: Problems Problem Status Onset Schizophrenia Acute
[2018-07-03] MEDS: MELATONIN 3 MG TAB PO PRN (20:58)
[2018-07-03] MEDS: PATCH REMOVAL 1 EA PATCH TD SCH (22:31)
[2018-07-04] MEDS: buPROPion XL 150 MG TAB PO SCH (07:39)
[2018-07-04] MEDS: RISPERIDONE 1 MG ODT TAB SL SCH ×2 (07:39→20:04)
[2018-07-04] MEDS: MULTIVITAMINS 1 EACH TAB PO SCH (07:39)
[2018-07-04] MEDS: OMEGA-3 FATTY ACIDS 1,000 MG CAP PO SCH (07:39)
[2018-07-04] MEDS: NICOTINE 21 MG/24 HR PATCH TD SCH (07:40)
[2018-07-04] MEDS: NICOTINE POLACRILEX 2 MG GUM B PRN ×7 (07:41→21:10)
[2018-07-04] MEDS: LORazepam 0.5 MG TAB PO PRN ×4 (07:45→21:08)
--- NOTE | 2018-07-04 10:04 | ASMTCMCOM ---
CM Note CM Note Notes: The patient reported that he does not plan to attend his court hearing tomorrow July 05. The patient reported that his father does not "want anything to do" with him. He stated that his father "is the one with mental health issues." The patient reported that the last time he attempted to have a family meeting with his father and his outpatient providers his father refused. He stated that "He had nothing to justify putting me on a MH hold; he must have been watching me through a small hole in the ceiling." Date Signed: 07/04/2018 10:03 AM Electronically Signed By:Joanne Charlton
--- NOTE | 2018-07-04 14:39 | SOAPPROG ---
SOAP Progress Note Assessment/Plan: Assessment: 33 yo man with h/o schizophrenia who has not taken meds in quite awhile. He has been living with FOC who claims he is afraid of patient's erratic moods and strange behavior. Per Dr. Moore's recent note: 06/28/18 11:21 Psychosis: No change. Will continue to offer scheduled Risperdal and PRN Zyprexa. Await hearing for COM. Continue behavioral plan. 06/29/18 17:01 Psychosis: No change. Will CCM. Await hearing for COM. Will observe as pt is more compliant with voluntary meds to determine whether or not he will regain capacity. Continue behavioral plan to limit acting out and vandalism. 06/30/18 15:39 Psychosis: Unchanged. CCM. Await COM hearing. 07/01/18 15:58 Psychosis: Improved with Risperdal. 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 07/03/18 07:52 Psychosis: Gradual improvement. CCM. Subjective: LATE ENTRY FOR 06/02/18. Pt seen discussed with staff. Remains rather aloof, rarely interacting with others. Out in day room per behavioral plan. No acting out. Generally compliant with meds. No SE's noted. PLAN: 07/03/18 16:33 1. Patient refused Risperdal this AM b/c it was in a different colored package. But he also said he wouldn't take it b/c it "causes me seizures." 2. Awaiting COM hearing on Thu07/05/18. 3. Still delusions about FOC refuses to have family meeting to plan d/c. 4. [facility] PLAN: 07/04/18 14:34 1. Patient took Risperdal this AM after prompting from RN. 2. Patient says he doesn't plan to go to court tomorrow. 3. Patient attended art group this AM, and maintained appropriate behavior. 4. No further incidents of sexually inappropriate behavior this w/e. 5. ST 6. COM hearing on Thursday. Subjective: Patient has been acting more appropriately in milieu and with peers this w/e. No incidents of masturbating or hiding art supplies. He asked RN if restrictions could be lifted so he could use bathroom in his room. MD asked patient about court tomorrow and he said he didn't want to go. MD asked if patient wanted to stipulate to COM, but he said "no." He said, "it doesn't matter if I stipulate or go to court, I'm taking my meds anyway." MD reminded patient he refused Risperdal yesterday AM, but he pointed out he took it this AM. Objective: Vital Signs Temp Pulse Resp BP Pulse Ox 36.6 C 86 14 113/59 L 94 07/04/18 06:00 07/04/18 06:00 07/04/18 06:00 07/04/18 06:00 07/04/18 06:00 MSE: Affect: Blunted Mood: "OK" TP: More linear and logical than before TC: Denies any SI/HI, still paranoid and believes FOC is an alien Insight/Judgment : Impaired - Time Spent With Patient Time Spent With Patient: 15" - Pending Discharge Pending Discharge Within 24 Hours: No Pending Discharge Within 48 Hours: No ICD10 Worksheet Patient Problems: Problems Problem Status Onset Schizophrenia Acute
[2018-07-04] MEDS: PATCH REMOVAL 1 EA PATCH TD SCH (20:04)
[2018-07-04] MEDS: MELATONIN 3 MG TAB PO PRN (21:08)
[2018-07-05] MEDS: OMEGA-3 FATTY ACIDS 1,000 MG CAP PO SCH (07:56)
[2018-07-05] MEDS: MULTIVITAMINS 1 EACH TAB PO SCH (07:56)
[2018-07-05] MEDS: LORazepam 0.5 MG TAB PO PRN ×4 (07:56→22:07)
[2018-07-05] MEDS: RISPERIDONE 1 MG ODT TAB SL SCH ×2 (07:57→21:07)
[2018-07-05] MEDS: buPROPion XL 150 MG TAB PO SCH (07:57)
[2018-07-05] MEDS: NICOTINE POLACRILEX 2 MG GUM B PRN ×8 (07:58→22:09)
[2018-07-05] MEDS: NICOTINE 21 MG/24 HR PATCH TD SCH (07:58)
--- NOTE | 2018-07-05 12:42 | ASMTCMCOM ---
CM Note CM Note Notes: According to [facility] staff, he was more verbal over the weekend. The patient reported a desire to contact his OP team. The patient reported that he doesn't need medication, although he is compliant, and that he does not intend to attend his court hearing which is scheduled for July 06 @ 15:30. This video game script writer reiterated the reasoning behind the proceeding; the patient lacked insight into his condition and his need for treatment. Date Signed: 07/05/2018 12:41 PM Electronically Signed By:Joanne Charlton
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
[2018-07-05] MEDS: MELATONIN 3 MG TAB PO PRN (22:22)
[2018-07-05] MEDS: PATCH REMOVAL 1 EA PATCH TD SCH (22:47)
[2018-07-06] MEDS: RISPERIDONE 1 MG ODT TAB SL SCH ×2 (08:40→20:49)
[2018-07-06] MEDS: MULTIVITAMINS 1 EACH TAB PO SCH (08:40)
[2018-07-06] MEDS: NICOTINE 21 MG/24 HR PATCH TD SCH (08:40)
[2018-07-06] MEDS: LORazepam 0.5 MG TAB PO PRN ×4 (08:40→21:46)
[2018-07-06] MEDS: OMEGA-3 FATTY ACIDS 1,000 MG CAP PO SCH (08:40)
[2018-07-06] MEDS: buPROPion XL 150 MG TAB PO SCH (08:40)
[2018-07-06] MEDS: NICOTINE POLACRILEX 2 MG GUM B PRN ×4 (08:40→13:31)
[2018-07-06] MEDS: MAG HYDROX/AL HYDROX/SIMETH 30 ML UDCUP PO PRN (13:42)
--- NOTE | 2018-07-06 19:20 | SOAPPROG ---
SOAP Progress Note Assessment/Plan: Assessment: Plan: 06/21/18 15:54 Psychosis: Remains quiet ill. Will petition for involuntary medications. 06/22/18 17:32 Psychosis: No change in clinical condition. Continues to refuse antipsychotic medications. Letter for COM submitted. 06/23/18 13:14 Psychosis: REmains psychotic. Refuses all meds. [facility]. Await COM hearing. 06/24/18 11:06 Psychosis: Calmer, though remains paranoid, guarded, non-compliant. Will continue to offer meds, await COM hearing. 06/25/18 16:21 Psychosis: Uncooperative. [facility]. Await [facility] hearing. Now postponed until later in the week. 06/28/18 11:21 Psychosis: No change. Will continue to offer scheduled Risperdal and PRN Zyprexa. Await hearing for COM. Continue behavioral plan. 06/29/18 17:01 Psychosis: No change. Will [facility]. Await hearing for COM. Will observe as pt is more compliant with voluntary meds to determine whether or not he will regain capacity. Continue behavioral plan to limit acting out and vandalism. 06/30/18 15:39 Psychosis: Unchanged. [facility]. Await COM hearing. 07/01/18 15:58 Psychosis: Improved with Risperdal. 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 07/03/18 07:52 Psychosis: Gradual improvement. CCM. 07/05/18 15:26 Psychosis: Continued gradual improvement. It remains doubtful that he will continue his meds after d/c. Will go to hearing for [facility] tomorrow to ask for [place]. 07/06/18 19:20 Psychosis: Continued gradual improvement. Stipulated to meds. WIll [facility]. Subjective: Pt seen, discussed with staff. Reports feeling "depressed." Asks to change to different antidepressant. I informed him that the bupropion had not had enough time to work. He stated, "It never worked for me before, I want something different." I agreed to increase to 300mg. Remains compliant with Risperdal. Asked to stipulate to involuntary meds if I would change Invega and Abilfy to Risperdal. I agreed. Objective: Vital Signs Temp Pulse Resp BP Pulse Ox 36.6 C 82 14 106/55 L 94 07/06/18 06:00 07/06/18 06:00 07/06/18 06:00 07/06/18 06:00 07/06/18 06:00 MSE: Calm, coop., guarded. Affect is constricted. Mood is "not too good." TP generally linear with some blocking. TC reveals continued delusional thinking. Continues to insist the man living in his father's home is not his father, but "James." Continues to believe he has to protect himself from "James". - Time Spent With Patient Time Spent With Patient: 25" ICD10 Worksheet Patient Problems: Problems Problem Status Onset Schizophrenia Acute
[2018-07-06] MEDS: MELATONIN 3 MG TAB PO PRN (20:49)
[2018-07-06] MEDS: PATCH REMOVAL 1 EA PATCH TD SCH (20:51)
[2018-07-07] MEDS: NICOTINE 21 MG/24 HR PATCH TD SCH (07:58)
[2018-07-07] MEDS: MULTIVITAMINS 1 EACH TAB PO SCH (07:58)
[2018-07-07] MEDS: buPROPion XL 150 MG TAB PO SCH (07:58)
[2018-07-07] MEDS: RISPERIDONE 1 MG ODT TAB SL SCH ×2 (07:58→20:25)
[2018-07-07] MEDS: OMEGA-3 FATTY ACIDS 1,000 MG CAP PO SCH (07:58)
[2018-07-07] MEDS: LORazepam 0.5 MG TAB PO PRN ×4 (08:02→20:50)
--- NOTE | 2018-07-07 12:11 | ASMTCMCOM ---
CM Note CM Note Notes: The patient stipulated to taking medication as prescribed by the provider. The patient is participating in activities of daily living including taking a shower this morning. The patient is reportedly following his behavioral plan. Date Signed: 07/07/2018 12:10 PM Electronically Signed By:Joanne Charlton
--- NOTE | 2018-07-07 15:37 | SOAPPROG ---
SOAP Progress Note Assessment/Plan: Assessment: Plan: 06/21/18 15:54 Psychosis: Remains quiet ill. Will petition for involuntary medications. 06/22/18 17:32 Psychosis: No change in clinical condition. Continues to refuse antipsychotic medications. Letter for [employer] submitted. 06/23/18 13:14 Psychosis: REmains psychotic. Refuses all meds. [facility]. Await COM hearing. 06/24/18 11:06 Psychosis: Calmer, though remains paranoid, guarded, non-compliant. Will continue to offer meds, await COM hearing. 06/25/18 16:21 Psychosis: Uncooperative. [facility]. Await COM hearing. Now postponed until later in the week. 06/28/18 11:21 Psychosis: No change. Will continue to offer scheduled Risperdal and PRN Zyprexa. Await hearing for COM. Continue behavioral plan. 06/29/18 17:01 Psychosis: No change. Will [facility]. Await hearing for COM. Will observe as pt is more compliant with voluntary meds to determine whether or not he will regain capacity. Continue behavioral plan to limit acting out and vandalism. 06/30/18 15:39 Psychosis: Unchanged. [facility]. Await COM hearing. 07/01/18 15:58 Psychosis: Improved with Risperdal. 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 07/03/18 07:52 Psychosis: Gradual improvement. [facility]CM. 07/05/18 15:26 Psychosis: Continued gradual improvement. It remains doubtful that he will continue his meds after d/c. Will go to hearing for [employer] tomorrow to ask for [place]. 07/06/18 19:20 Psychosis: Continued gradual improvement. Stipulated to meds. WIll [facility]. 07/07/18 15:39 Psychosis: Stabilizing. Not ready for d/c due to continued intrusive delusions. Will [facility]. Subjective: Pt seen, discussed with staff. Remains aloof. Continues to exhibit regressive adolescent behaviors such as using toothpaste or gum to stick things to the brown in his room after being asked not to many times. He remains compliant with meds. No c/o's. Objective: Vital Signs Temp Pulse Resp BP Pulse Ox 36.5 C 73 14 99/55 L 95 07/07/18 06:00 07/07/18 06:00 07/07/18 06:00 07/07/18 06:00 07/07/18 06:00 MSE: Guarded, moderately anxious appearing. Affect is constricted, anxious. Mood is "depressed." TP generally linear with some continued blocking. TC reveals continued delusions. - Time Spent With Patient Time Spent With Patient: 15" ICD10 Worksheet Patient Problems: Problems Problem Status Onset Schizophrenia Acute
[2018-07-07] MEDS: MELATONIN 3 MG TAB PO PRN (20:29)
[2018-07-07] MEDS: PATCH REMOVAL 1 EA PATCH TD SCH (20:31)
[2018-07-08] MEDS: RISPERIDONE 1 MG ODT TAB SL SCH (08:00)
[2018-07-08] MEDS: buPROPion XL 150 MG TAB PO SCH (08:00)
[2018-07-08] MEDS: LORazepam 0.5 MG TAB PO PRN ×4 (08:01→20:49)
[2018-07-08] MEDS: OMEGA-3 FATTY ACIDS 1,000 MG CAP PO SCH (08:01)
[2018-07-08] MEDS: MULTIVITAMINS 1 EACH TAB PO SCH (08:01)
[2018-07-08] MEDS: NICOTINE 21 MG/24 HR PATCH TD SCH (08:07)
--- NOTE | 2018-07-08 13:08 | ASMTCMCOM ---
CM Note CM Note Notes: Pt. was heading into group, when CC asked to talk. Pt. reports doing "alright". Pt. stated he slept "pretty good". Pt. reports eating well and attending groups. Pt. reports no issues with his current medications. Pt. denied SI, HI, AVH and paranoia. Pt. asked if his therapist could visit him. CC explained unit policy about visitors. Pt. agreed to let CC schedule a follow up appointment with his therapist, Dyan Zendejas, and signed an WILTON. Pt. presents as alert, guarded, cooperative with CC, staring eye contact, and somewhat groomed. Staff report pt. sleeping 8.5 hours and being medication compliant. Date Signed: 07/08/2018 01:07 PM Electronically Signed By:Sapphire Portillo
--- NOTE | 2018-07-08 15:38 | SOAPPROG ---
SOAP Progress Note Assessment/Plan: Assessment: Plan: 06/21/18 15:54 Psychosis: Remains quiet ill. Will petition for involuntary medications. 06/22/18 17:32 Psychosis: No change in clinical condition. Continues to refuse antipsychotic medications. Letter for COM submitted. 06/23/18 13:14 Psychosis: REmains psychotic. Refuses all meds. [facility]. Await COM hearing. 06/24/18 11:06 Psychosis: Calmer, though remains paranoid, guarded, non-compliant. Will continue to offer meds, await COM hearing. 06/25/18 16:21 Psychosis: Uncooperative. [facility]. Await COM hearing. Now postponed until later in the week. 06/28/18 11:21 Psychosis: No change. Will continue to offer scheduled Risperdal and PRN Zyprexa. Await hearing for COM. Continue behavioral plan. 06/29/18 17:01 Psychosis: No change. Will [facility]. Await hearing for COM. Will observe as pt is more compliant with voluntary meds to determine whether or not he will regain capacity. Continue behavioral plan to limit acting out and vandalism. 06/30/18 15:39 Psychosis: Unchanged. [facility]. Await COM hearing. 07/01/18 15:58 Psychosis: Improved with Risperdal. 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 07/03/18 07:52 Psychosis: Gradual improvement. [facility]CM. 07/05/18 15:26 Psychosis: Continued gradual improvement. It remains doubtful that he will continue his meds after d/c. Will go to hearing for [employer] tomorrow to ask for [place]. 07/06/18 19:20 Psychosis: Continued gradual improvement. Stipulated to meds. WIll [facility]. 07/07/18 15:39 Psychosis: Stabilizing. Not ready for d/c due to continued intrusive delusions. Will [facility]. 07/08/18 15:37 Psychosis: Gradual improvement. CCM. Likely d/c next week if he improves and becomes accepting of d/c plan inc: help from family. Subjective: Pt seen, discussed with staff. Remains isolative, aloof. Pacing halls or sitting in day room. Given a clearer outline of restrictions in writing. Accepting of this. No recent acting out. Remains paranoid about family. Continues to believe he cannot trust "James" and that he is in danger if he is in the home when he returns. Objective: Vital Signs Temp Pulse Resp BP Pulse Ox 36.3 C 83 16 120/77 95 07/08/18 06:00 07/08/18 06:00 07/08/18 06:00 07/08/18 06:00 07/08/18 06:00 MSE: Moderately agitated, pacing. Affect is quite constricted, stable. Mood is "depressed." TP is linear for brief periods, derails. TC reveals paranoia. - Time Spent With Patient Time Spent With Patient: 15" ICD10 Worksheet Patient Problems: Problems Problem Status Onset Schizophrenia Acute
[2018-07-08] MEDS: RISPERIDONE 2 MG ODT TAB SL SCH (20:20)
[2018-07-08] MEDS: MELATONIN 3 MG TAB PO PRN (20:49)
[2018-07-08] MEDS: PATCH REMOVAL 1 EA PATCH TD SCH (21:29)
[2018-07-09] MEDS: OMEGA-3 FATTY ACIDS 1,000 MG CAP PO SCH (08:17)
[2018-07-09] MEDS: NICOTINE 21 MG/24 HR PATCH TD SCH (08:17)
[2018-07-09] MEDS: MULTIVITAMINS 1 EACH TAB PO SCH (08:17)
[2018-07-09] MEDS: LORazepam 0.5 MG TAB PO PRN ×4 (08:17→21:24)
[2018-07-09] MEDS: buPROPion XL 150 MG TAB PO SCH (08:17)
[2018-07-09] MEDS: RISPERIDONE 1 MG ODT TAB SL SCH (08:17)
--- NOTE | 2018-07-09 18:23 | SOAPPROG ---
SOAP Progress Note Assessment/Plan: Assessment: Plan: 06/21/18 15:54 Psychosis: Remains quiet ill. Will petition for involuntary medications. 06/22/18 17:32 Psychosis: No change in clinical condition. Continues to refuse antipsychotic medications. Letter for COM submitted. 06/23/18 13:14 Psychosis: REmains psychotic. Refuses all meds. [facility]. Await COM hearing. 06/24/18 11:06 Psychosis: Calmer, though remains paranoid, guarded, non-compliant. Will continue to offer meds, await COM hearing. 06/25/18 16:21 Psychosis: Uncooperative. [facility]. Await COM hearing. Now postponed until later in the week. 06/28/18 11:21 Psychosis: No change. Will continue to offer scheduled Risperdal and PRN Zyprexa. Await hearing for COM. Continue behavioral plan. 06/29/18 17:01 Psychosis: No change. Will [facility]. Await hearing for COM. Will observe as pt is more compliant with voluntary meds to determine whether or not he will regain capacity. Continue behavioral plan to limit acting out and vandalism. 06/30/18 15:39 Psychosis: Unchanged. [facility]. Await COM hearing. 07/01/18 15:58 Psychosis: Improved with Risperdal. 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 07/03/18 07:52 Psychosis: Gradual improvement. [facility]CM. 07/05/18 15:26 Psychosis: Continued gradual improvement. It remains doubtful that he will continue his meds after d/c. Will go to hearing for [employer] tomorrow to ask for [place]. 07/06/18 19:20 Psychosis: Continued gradual improvement. Stipulated to meds. WIll [facility]. 07/07/18 15:39 Psychosis: Stabilizing. Not ready for d/c due to continued intrusive delusions. Will [facility]. 07/08/18 15:37 Psychosis: Gradual improvement. CCM. Likely d/c next week if he improves and becomes accepting of d/c plan inc: help from family. 07/09/18 18:23 Psychosis: May be approaching baseline. Will [facility], continue d/c planning. Day #2 of increased Risperdal. Subjective: Pt seen, discussed with staff. Remains aloof, to himself. Out in day room per behavioral plan. No recent acting out. No c/o's except wanting the gum back. I informed this will not ever happen due to his lack of behavioral control and defiant attitude towards staff. Continues to refuse to involve family in d/c planning. Objective: Vital Signs Temp Pulse Resp BP Pulse Ox 36.7 C 74 16 106/62 94 07/09/18 06:00 07/09/18 06:00 07/09/18 06:00 07/09/18 06:00 07/09/18 06:00 MSE: Guarded, reserved. Affect is constricted, stable, approp. Mood is "bad. " TP is linear for brief periods, derails. TC reveals continued delusions. - Time Spent With Patient Time Spent With Patient: 15" ICD10 Worksheet Patient Problems: Problems Problem Status Onset Schizophrenia Acute
[2018-07-09] MEDS: MELATONIN 3 MG TAB PO PRN (20:25)
[2018-07-09] MEDS: RISPERIDONE 2 MG ODT TAB SL SCH (20:25)
[2018-07-09] MEDS: PATCH REMOVAL 1 EA PATCH TD SCH (21:33)
[2018-07-10] MEDS: MULTIVITAMINS 1 EACH TAB PO SCH (07:54)
[2018-07-10] MEDS: OMEGA-3 FATTY ACIDS 1,000 MG CAP PO SCH (07:55)
[2018-07-10] MEDS: NICOTINE 21 MG/24 HR PATCH TD SCH (07:55)
[2018-07-10] MEDS: buPROPion XL 150 MG TAB PO SCH (07:55)
[2018-07-10] MEDS: RISPERIDONE 1 MG ODT TAB SL SCH (07:55)
[2018-07-10] MEDS: LORazepam 0.5 MG TAB PO PRN ×4 (07:59→20:15)
--- NOTE | 2018-07-10 15:46 | ASMTBHDC ---
Notes Note: Notes: Pt. reports feeling "alright". Pt. stated he slept "pretty good". Pt. reports eating well. Pt. reports no issues with his current medications. Pt. stated he has "no concerns" about returning to his apartment. Pt. stated he "disassociates with dad", adding they have an agreement with the local evaporator helper. Pt. stated his dad is "old grump with PTSD", adding "he stays upstairs, I stay downstairs". Pt. stated he is also currently building a house in [place]" adding it will be done "mid to end of next year". Pt. stated he is working on getting a phone, so he can call the evaporator helper if there are any issues with his dad. Pt. stated he has his own car and can get himself to his follow up appointments. Pt. shared his list of goals with CC. Pt. denied SI, HI, AVH and paranoia. Pt. requested a [place] ride for when he discharges, adding it's a [address] Pt. presents as alert, more organized, calm, good eye contact, groomed, and cooperative. Staff report pt. sleeping 8 hours and being medication complaint. Date Signed: 07/10/2018 03:45 PM Electronically Signed By:Sapphire Portillo
--- NOTE | 2018-07-10 17:57 | SOAPPROG ---
SOAP Progress Note Assessment/Plan: Assessment: 33 yo man with h/o schizophrenia who has not taken meds in quite awhile. He has been living with [facility] who claims he is afraid of patient's erratic moods and strange behavior. Per Dr. Moore's recent note: 07/05/18 15:26 Psychosis: Continued gradual improvement. It remains doubtful that he will continue his meds after d/c. Will go to hearing for [facility] tomorrow to ask for [place]. 07/06/18 19:20 Psychosis: Continued gradual improvement. Stipulated to meds. WIll [facility]. 07/07/18 15:39 Psychosis: Stabilizing. Not ready for d/c due to continued intrusive delusions. Will [facility]. 07/08/18 15:37 Psychosis: Gradual improvement. CCM. Likely d/c next week if he improves and becomes accepting of d/c plan inc: help from family. 07/09/18 18:23 Psychosis: May be approaching baseline. Will [facility], continue d/c planning. Day #2 of increased Risperdal. Subjective: Pt seen, discussed with staff. Remains aloof, to himself. Out in day room per behavioral plan. No recent acting out. No c/o's except wanting the gum back. I informed this will not ever happen due to his lack of behavioral control and defiant attitude towards staff. Continues to refuse to involve family in d/c planning. PLAN: 07/10/18 17:54 1. Patient stipulated to COM. 2. Staff agree to modify his behavioral plan to allow patient to use colored pencils in day area with supervision. 3. Patient still refuses to wear underwear. Instead he uses sheet under his pants, notes patient has a pair of underwear hanging in his room. 4. Still refuses to accept FOC has right to live in his own home. Subjective: Patient slept 8 hrs last night, spent at least 1/2 day in his room. Patient did agree to revised behavior plan that allows use of colored pencils with supervision. No SI/HI. Objective: Vital Signs Temp Pulse Resp BP Pulse Ox 36.5 C 72 16 112/65 94 07/10/18 06:00 07/10/18 06:00 07/10/18 06:00 07/10/18 06:00 07/10/18 06:00 MSE: Affect: Flat Mood: "OK" TP: More linear and fluent speech TC: Denies SI/ HI, still paranoid & delusional Insight/Judgment: Poor - Time Spent With Patient Time Spent With Patient: 15" - Pending Discharge Pending Discharge Within 24 Hours: No Pending Discharge Within 48 Hours: No ICD10 Worksheet Patient Problems: Problems Problem Status Onset Schizophrenia Acute
[2018-07-10] MEDS: RISPERIDONE 2 MG ODT TAB SL SCH (20:01)
[2018-07-10] MEDS: MELATONIN 3 MG TAB PO PRN (20:15)
[2018-07-10] MEDS: PATCH REMOVAL 1 EA PATCH TD SCH (21:06)
[2018-07-11] MEDS: LORazepam 0.5 MG TAB PO PRN ×4 (07:56→22:05)
[2018-07-11] MEDS: NICOTINE 21 MG/24 HR PATCH TD SCH (07:56)
[2018-07-11] MEDS: RISPERIDONE 1 MG ODT TAB SL SCH (07:56)
[2018-07-11] MEDS: OMEGA-3 FATTY ACIDS 1,000 MG CAP PO SCH (07:56)
[2018-07-11] MEDS: MULTIVITAMINS 1 EACH TAB PO SCH (07:56)
[2018-07-11] MEDS: buPROPion XL 150 MG TAB PO SCH (07:56)
--- NOTE | 2018-07-11 15:39 | ASMTBHDC ---
Notes Note: Notes: Pt. reports feeling "pretty good". Pt. reports sleeping "pretty good". Pt. asked if CC could confirm he can get a [place] ride, otherwise pt stated he can pay for a cab at discharge. Pt. stated he knows his car at home is out of gas, and pt. would like to buy a gas can, with gas, to take home with him. Pt. asked CC to schedule his cab pickup one hour after his discharge so he can purchase a gas can and gas. Pt. stated he is willing to continue taking his medications after discharge. Pt. stated he wants to discuss his medications with his outpatient psychiatrist. Pt. stated he wants to see about switching to CBD extract, adding both Dr. Mireles and Dr. Bhat agreed on this in the past. Pt. stated he was seeing Dr. Mireles, but switched to Dr. Bhat because she is in [place]. Pt. stated he has an appointment with Dr. Bhat on Thursday07/12/18 at 2:45pm. Pt. agreed to sign a WILTON for CC to reschedule this appointment. Pt. denied SI, HI, AVH and paranoia. Pt. presents as alert, calm, polite, cooperative, good eye contact and lacking insight into need for medication. Staff report pt. sleeping 8.5 hours, being compliant with new behavioral plan and attending groups. Date Signed: 07/11/2018 03:38 PM Electronically Signed By:Sapphire Portillo
--- NOTE | 2018-07-11 19:13 | SOAPPROG ---
SOAP Progress Note Assessment/Plan: Assessment: 33 yo man with h/o schizophrenia who has not taken meds in quite awhile. He has been living with [facility] who claims he is afraid of patient's erratic moods and strange behavior. Per Dr. Moore's recent note: 07/05/18 15:26 Psychosis: Continued gradual improvement. It remains doubtful that he will continue his meds after d/c. Will go to hearing for [facility] tomorrow to ask for [place]. 07/06/18 19:20 Psychosis: Continued gradual improvement. Stipulated to meds. WIll CCM. 07/07/18 15:39 Psychosis: Stabilizing. Not ready for d/c due to continued intrusive delusions. Will CCM. 07/08/18 15:37 Psychosis: Gradual improvement. CCM. Likely d/c next week if he improves and becomes accepting of d/c plan inc: help from family. 07/09/18 18:23 Psychosis: May be approaching baseline. Will [facility], continue d/c planning. Day #2 of increased Risperdal. Subjective: Pt seen, discussed with staff. Remains aloof, to himself. Out in day room per behavioral plan. No recent acting out. No c/o's except wanting the gum back. I informed this will not ever happen due to his lack of behavioral control and defiant attitude towards staff. Continues to refuse to involve family in d/c planning. PLAN: 07/10/18 17:54 1. Patient stipulated to [facility]. 2. Staff agree to modify his behavioral plan to allow patient to use colored pencils in day area with supervision. 3. Patient still refuses to wear underwear. Instead he uses sheet under his pants, notes patient has a pair of underwear hanging in his room. 4. Still refuses to accept FOC has right to live in his own home. PLAN: 07/11/18 19:10 1. Patient presents calm and appropriate. He has new behavorial plan that allows him to use colored pencils in day area with supervision. He has followed plan appropriately today. 2. Patient told CC that his FOC is "grumpy, old PTSD person." He is willing to return home and set up house so he doesn't have to see his FOC. He does not talk about his FOC being an alien or impostor today. 3. CCM Subjective: Patient more cooperative over w/e. He was allowed to use colored pencils with staff supervision and followed his plan appropriately. He denies any SI/HI. Objective: Vital Signs Temp Pulse Resp BP Pulse Ox 36.5 C 72 16 112/65 94 07/10/18 06:00 07/10/18 06:00 07/10/18 06:00 07/10/18 06:00 07/10/18 06:00 MSE: Affect: Flat Mood: "OK" TP: More coherent and linear TC: Denies any SI/ HI, still paranoid and delusional Perception: No AH/VH Insight/Judgment: Improved - Time Spent With Patient Time Spent With Patient: 15" - Pending Discharge Pending Discharge Within 24 Hours: No Pending Discharge Within 48 Hours: No ICD10 Worksheet Patient Problems: Problems Problem Status Onset Schizophrenia Acute
[2018-07-11] MEDS: RISPERIDONE 2 MG ODT TAB SL SCH (20:07)
[2018-07-11] MEDS: PATCH REMOVAL 1 EA PATCH TD SCH (20:33)
[2018-07-11] MEDS: MELATONIN 3 MG TAB PO PRN (22:06)
[2018-07-12] MEDS: OMEGA-3 FATTY ACIDS 1,000 MG CAP PO SCH (08:00)
[2018-07-12] MEDS: buPROPion XL 150 MG TAB PO SCH (08:00)
[2018-07-12] MEDS: LORazepam 0.5 MG TAB PO PRN ×3 (08:00→20:13)
[2018-07-12] MEDS: MULTIVITAMINS 1 EACH TAB PO SCH (08:00)
[2018-07-12] MEDS: RISPERIDONE 1 MG ODT TAB SL SCH (08:00)
[2018-07-12] MEDS: NICOTINE 21 MG/24 HR PATCH TD SCH (08:01)
--- NOTE | 2018-07-12 14:12 | ASMTBHDC ---
Notes Note: Notes: Pt. reports feeling "alright". Pt. stated he is willing to have a family meeting but doesn't think his father will want to come. Pt. stated "probably pretty much impossible", adding pt's father "has hard time taking care of himself". Pt. stated his dad told him, prior to pt's admission, he (father) was leaving in two weeks and not coming back. Pt. did sign an WILTON for dadJames and an WILTON for Jacqueline pt's ground defence officer. Staff report pt. sleeping 7 hours and being medication compliant. Date Signed: 07/12/2018 02:11 PM Electronically Signed By:Sapphire Portillo
--- NOTE | 2018-07-12 14:13 | SOAPPROG ---
SOAP Progress Note Assessment/Plan: Assessment: Plan: 06/21/18 15:54 Psychosis: Remains quiet ill. Will petition for involuntary medications. 06/22/18 17:32 Psychosis: No change in clinical condition. Continues to refuse antipsychotic medications. Letter for COM submitted. 06/23/18 13:14 Psychosis: REmains psychotic. Refuses all meds. CCM. Await COM hearing. 06/24/18 11:06 Psychosis: Calmer, though remains paranoid, guarded, non-compliant. Will continue to offer meds, await COM hearing. 06/25/18 16:21 Psychosis: Uncooperative. CCM. Await COM hearing. Now postponed until later in the week. 06/28/18 11:21 Psychosis: No change. Will continue to offer scheduled Risperdal and PRN Zyprexa. Await hearing for COM. Continue behavioral plan. 06/29/18 17:01 Psychosis: No change. Will CCM. Await hearing for COM. Will observe as pt is more compliant with voluntary meds to determine whether or not he will regain capacity. Continue behavioral plan to limit acting out and vandalism. 06/30/18 15:39 Psychosis: Unchanged. CCM. Await COM hearing. 07/01/18 15:58 Psychosis: Improved with Risperdal. 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 07/03/18 07:52 Psychosis: Gradual improvement. CCM. 07/05/18 15:26 Psychosis: Continued gradual improvement. It remains doubtful that he will continue his meds after d/c. Will go to hearing for [employer] tomorrow to ask for [place]. 07/06/18 19:20 Psychosis: Continued gradual improvement. Stipulated to meds. WIll CCM. 07/07/18 15:39 Psychosis: Stabilizing. Not ready for d/c due to continued intrusive delusions. Will [facility]. 07/08/18 15:37 Psychosis: Gradual improvement. CCM. Likely d/c next week if he improves and becomes accepting of d/c plan inc: help from family. 07/09/18 18:23 Psychosis: May be approaching baseline. Will [facility], continue d/c planning. Day #2 of increased Risperdal. 07/12/18 14:13 Psychosis: Continued gradual improvement. CCM. Continue d/c planning which is going to be a challenge at this point. Will "override" pt's refusal to allow us to communicate with his mother due to his ongoing incapacity and the basis of his objection in paranoid delusions. Will only utilize this to find out if she can be a resource for him at d/c which is clearly in his best interest at this time as she is his only other support. Subjective: Pt seen, discussed with staff. Reports feeling feeling "pretty good." States he is ready to return to his home. He agrees to allow family meeting with father to discuss this. CC contacted father who was not willing to allow patient to return home at this time. Pt refused to allow us to communicate with his mother. He remains in good behavioral control. Remains delusional, but this is much improved and minimally affecting behaviors at this point. Privileges advanced over WE. Objective: Vital Signs Temp Pulse Resp BP Pulse Ox 36.7 C 83 16 104/57 L 95 07/12/18 06:00 07/12/18 06:00 07/12/18 06:00 07/12/18 06:00 07/12/18 06:00 MSE: Calm, interactive, somewhat guarded, coop. Affect is restricted, stable, approp. Mood is "OK." TP is generally linear. TC reveals continued paranoid thoughts about his father, though he just mumbles or whispers these instead of perseverating on them. Denies AH's. - Time Spent With Patient Time Spent With Patient: 25" ICD10 Worksheet Patient Problems: Problems Problem Status Onset Schizophrenia Acute
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
--- NOTE | 2018-07-12 14:22 | ASMTBHDC ---
Notes Note: Notes: Pt. signed WILTON for marketing officer (PO), Jacqueline [phone] PO stated they are aware pt. is in the hospital and he is not in violation of his probation. PO stated pt. missed an appointment a few weeks ago due to being in the hospital. PO requested to have another appointment setup with her prior to pt's discharge. PO requested to be notified when pt will be discharging. Date Signed: 07/12/2018 02:22 PM Electronically Signed By:Sapphire Portillo
[2018-07-12] MEDS: RISPERIDONE 2 MG ODT TAB SL SCH (20:10)
[2018-07-12] MEDS: MELATONIN 3 MG TAB PO PRN (20:12)
[2018-07-12] MEDS: PATCH REMOVAL 1 EA PATCH TD SCH (22:29)
[2018-07-13] MEDS: OMEGA-3 FATTY ACIDS 1,000 MG CAP PO SCH (08:07)
[2018-07-13] MEDS: NICOTINE 21 MG/24 HR PATCH TD SCH (08:07)
[2018-07-13] MEDS: MULTIVITAMINS 1 EACH TAB PO SCH (08:07)
[2018-07-13] MEDS: LORazepam 0.5 MG TAB PO PRN ×2 (08:07→20:03)
[2018-07-13] MEDS: buPROPion XL 150 MG TAB PO SCH (08:07)
[2018-07-13] MEDS: RISPERIDONE 1 MG ODT TAB SL SCH (08:07)
--- NOTE | 2018-07-13 12:04 | ASMTCMCOM ---
CM Note CM Note Notes: CC called [facility] at ([phone]) no answer; left detailed VM with all necessary return contact information, etc. CC wanted to confirm that client could discharge into her care, and if so what would that look like, etc.* Date Signed: 07/13/2018 12:04 PM Electronically Signed By:Wilfrido Mcclain
--- NOTE | 2018-07-13 12:22 | ASMTCMCOM ---
CM Note CM Note Notes: CC spoke to [facility], she noted "that would be ok, for him to stay with me." MO had concerns with client: staying on his medications as well as his probation transferring to another county." CC noted, that it would be helpful for [facility] to try to come to [place] later this week for a family meeting so everyone is on the same page regarding expectations. [facility] will contact CC back to see if she can get a ride to [place] for Thursday/ as well as get the day of work. Date Signed: 07/13/2018 12:22 PM Electronically Signed By:Wilfrido Mcclain
[2018-07-13] MEDS: MELATONIN 3 MG TAB PO PRN (20:04)
[2018-07-13] MEDS: RISPERIDONE 2 MG ODT TAB SL SCH (20:04)
--- NOTE | 2018-07-13 21:01 | SOAPPROG ---
SOAP Progress Note Assessment/Plan: Assessment: Plan: 06/21/18 15:54 Psychosis: Remains quiet ill. Will petition for involuntary medications. 06/22/18 17:32 Psychosis: No change in clinical condition. Continues to refuse antipsychotic medications. Letter for COM submitted. 06/23/18 13:14 Psychosis: REmains psychotic. Refuses all meds. CCM. Await COM hearing. 06/24/18 11:06 Psychosis: Calmer, though remains paranoid, guarded, non-compliant. Will continue to offer meds, await COM hearing. 06/25/18 16:21 Psychosis: Uncooperative. CCM. Await COM hearing. Now postponed until later in the week. 06/28/18 11:21 Psychosis: No change. Will continue to offer scheduled Risperdal and PRN Zyprexa. Await hearing for COM. Continue behavioral plan. 06/29/18 17:01 Psychosis: No change. Will CCM. Await hearing for COM. Will observe as pt is more compliant with voluntary meds to determine whether or not he will regain capacity. Continue behavioral plan to limit acting out and vandalism. 06/30/18 15:39 Psychosis: Unchanged. CCM. Await COM hearing. 07/01/18 15:58 Psychosis: Improved with Risperdal. 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 07/03/18 07:52 Psychosis: Gradual improvement. CCM. 07/05/18 15:26 Psychosis: Continued gradual improvement. It remains doubtful that he will continue his meds after d/c. Will go to hearing for [employer] tomorrow to ask for [place]. 07/06/18 19:20 Psychosis: Continued gradual improvement. Stipulated to meds. WIll CCM. 07/07/18 15:39 Psychosis: Stabilizing. Not ready for d/c due to continued intrusive delusions. Will [facility]. 07/08/18 15:37 Psychosis: Gradual improvement. CCM. Likely d/c next week if he improves and becomes accepting of d/c plan inc: help from family. 07/09/18 18:23 Psychosis: May be approaching baseline. Will [facility], continue d/c planning. Day #2 of increased Risperdal. 07/12/18 14:13 Psychosis: Continued gradual improvement. CCM. Continue d/c planning which is going to be a challenge at this point. Will "override" pt's refusal to allow us to communicate with his mother due to his ongoing incapacity and the basis of his objection in paranoid delusions. Will only utilize this to find out if she can be a resource for him at d/c which is clearly in his best interest at this time as she is his only other support. 07/13/18 21:00 Psychosis: Much improved. CCM. Finalize d/c plan, likely to mother's. Will then d/c [facility] due to inability to transfer unless arrangements can be made with [facility]. Subjective: Pt seen, discussed with staff, interviewed in treatment team meeting. He acknowledges conflict with father and states he is willing to live with mother now. Discussed in detail d/c and f/u plans. Refuses Consta or Sustenna shots. No recent acting out. Doing well with recent increase in privileges. Objective: Vital Signs Temp Pulse Resp BP Pulse Ox 36.4 C 75 14 106/56 L 96 07/13/18 06:00 07/13/18 06:00 07/13/18 06:00 07/13/18 06:00 07/13/18 06:00 MSE: Calm, coop. Affect is constricted, approp, not irritable or defiant. Mood is "pretty good." TP generally linear. TC reveals continued paranoia. Denies AH's or SI/HI/. - Time Spent With Patient Time Spent With Patient: 25" ICD10 Worksheet Patient Problems: Problems Problem Status Onset Schizophrenia Acute
[2018-07-13] MEDS: PATCH REMOVAL 1 EA PATCH TD SCH (21:30)
[2018-07-14] MEDS: OMEGA-3 FATTY ACIDS 1,000 MG CAP PO SCH (07:57)
[2018-07-14] MEDS: MULTIVITAMINS 1 EACH TAB PO SCH (07:57)
[2018-07-14] MEDS: buPROPion XL 150 MG TAB PO SCH (07:57)
[2018-07-14] MEDS: RISPERIDONE 1 MG ODT TAB SL SCH (07:58)
[2018-07-14] MEDS: NICOTINE 21 MG/24 HR PATCH TD SCH (07:58)
--- NOTE | 2018-07-14 11:24 | ASMTCMCOM ---
CM Note CM Note Notes: CC spoke with client regarding discharging to [facility]. MOC noted to CC yesterday that she would be alright if client lived with her for a while post discharge. MOC noted, that she could make a Thursday (07/16) noon family meeting time with client, CC and provider to go over options for discharge and planning, etc. CC spoke with [facility] liaison who noted, she will try to coordinate client's mental health services to [facility] Campos. Client signed WILTON for [facility], CC faxed it over. Client presents as more compliant on the unit recently and is taking medications, etc.* Date Signed: 07/14/2018 11:24 AM Electronically Signed By:Wilfrido Mcclain
--- NOTE | 2018-07-14 16:57 | SOAPPROG ---
SOAP Progress Note Assessment/Plan: Assessment: Plan: 06/21/18 15:54 Psychosis: Remains quiet ill. Will petition for involuntary medications. 06/22/18 17:32 Psychosis: No change in clinical condition. Continues to refuse antipsychotic medications. Letter for COM submitted. 06/23/18 13:14 Psychosis: REmains psychotic. Refuses all meds. CCM. Await COM hearing. 06/24/18 11:06 Psychosis: Calmer, though remains paranoid, guarded, non-compliant. Will continue to offer meds, await COM hearing. 06/25/18 16:21 Psychosis: Uncooperative. CCM. Await COM hearing. Now postponed until later in the week. 06/28/18 11:21 Psychosis: No change. Will continue to offer scheduled Risperdal and PRN Zyprexa. Await hearing for COM. Continue behavioral plan. 06/29/18 17:01 Psychosis: No change. Will CCM. Await hearing for COM. Will observe as pt is more compliant with voluntary meds to determine whether or not he will regain capacity. Continue behavioral plan to limit acting out and vandalism. 06/30/18 15:39 Psychosis: Unchanged. CCM. Await COM hearing. 07/01/18 15:58 Psychosis: Improved with Risperdal. 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 07/03/18 07:52 Psychosis: Gradual improvement. CCM. 07/05/18 15:26 Psychosis: Continued gradual improvement. It remains doubtful that he will continue his meds after d/c. Will go to hearing for [employer] tomorrow to ask for [place]. 07/06/18 19:20 Psychosis: Continued gradual improvement. Stipulated to meds. WIll CCM. 07/07/18 15:39 Psychosis: Stabilizing. Not ready for d/c due to continued intrusive delusions. Will [facility]. 07/08/18 15:37 Psychosis: Gradual improvement. CCM. Likely d/c next week if he improves and becomes accepting of d/c plan inc: help from family. 07/09/18 18:23 Psychosis: May be approaching baseline. Will [facility], continue d/c planning. Day #2 of increased Risperdal. 07/12/18 14:13 Psychosis: Continued gradual improvement. CCM. Continue d/c planning which is going to be a challenge at this point. Will "override" pt's refusal to allow us to communicate with his mother due to his ongoing incapacity and the basis of his objection in paranoid delusions. Will only utilize this to find out if she can be a resource for him at d/c which is clearly in his best interest at this time as she is his only other support. 07/13/18 21:00 Psychosis: Much improved. CCM. Finalize d/c plan, likely to mother's. Will then d/c [facility] due to inability to transfer unless arrangements can be made with [facility]. 07/14/18 16:57 Psychosis: Approaching baseline. CCM. Subjective: Pt seen, discussed with staff. Agreeable to family meeting Thursday for d/c planning. Behaviors in reasonable control at this point. Compliant with meds. Objective: Vital Signs Temp Pulse Resp BP Pulse Ox 36.5 C 73 20 99/51 L 94 07/14/18 06:00 07/14/18 06:00 07/14/18 06:00 07/14/18 06:00 07/14/18 06:00 MSE: Calm, guarded. Affect is blunted, stable. Mood is "fine." TP generally linear. TC reveals continued paranoid and bizarre delusions, though much less prominent. No SI/HI/. - Time Spent With Patient Time Spent With Patient: 15" ICD10 Worksheet Patient Problems: Problems Problem Status Onset Schizophrenia Acute
[2018-07-14] MEDS: MELATONIN 3 MG TAB PO PRN (20:01)
[2018-07-14] MEDS: RISPERIDONE 2 MG ODT TAB SL SCH (20:02)
[2018-07-14] MEDS: PATCH REMOVAL 1 EA PATCH TD SCH (21:34)
[2018-07-15] MEDS: OMEGA-3 FATTY ACIDS 1,000 MG CAP PO SCH (08:06)
[2018-07-15] MEDS: RISPERIDONE 1 MG ODT TAB SL SCH (08:07)
[2018-07-15] MEDS: MULTIVITAMINS 1 EACH TAB PO SCH (08:07)
[2018-07-15] MEDS: NICOTINE 21 MG/24 HR PATCH TD SCH (08:07)
[2018-07-15] MEDS: buPROPion XL 150 MG TAB PO SCH (08:07)
[2018-07-15] MEDS: RISPERIDONE 2 MG ODT TAB SL SCH (20:00)
[2018-07-15] MEDS: PATCH REMOVAL 1 EA PATCH TD SCH (20:14)
--- NOTE | 2018-07-15 21:05 | SOAPPROG ---
SOAP Progress Note Assessment/Plan: Assessment: Plan: 06/21/18 15:54 Psychosis: Remains quiet ill. Will petition for involuntary medications. 06/22/18 17:32 Psychosis: No change in clinical condition. Continues to refuse antipsychotic medications. Letter for COM submitted. 06/23/18 13:14 Psychosis: REmains psychotic. Refuses all meds. CCM. Await COM hearing. 06/24/18 11:06 Psychosis: Calmer, though remains paranoid, guarded, non-compliant. Will continue to offer meds, await COM hearing. 06/25/18 16:21 Psychosis: Uncooperative. CCM. Await COM hearing. Now postponed until later in the week. 06/28/18 11:21 Psychosis: No change. Will continue to offer scheduled Risperdal and PRN Zyprexa. Await hearing for COM. Continue behavioral plan. 06/29/18 17:01 Psychosis: No change. Will CCM. Await hearing for COM. Will observe as pt is more compliant with voluntary meds to determine whether or not he will regain capacity. Continue behavioral plan to limit acting out and vandalism. 06/30/18 15:39 Psychosis: Unchanged. CCM. Await COM hearing. 07/01/18 15:58 Psychosis: Improved with Risperdal. 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 07/03/18 07:52 Psychosis: Gradual improvement. CCM. 07/05/18 15:26 Psychosis: Continued gradual improvement. It remains doubtful that he will continue his meds after d/c. Will go to hearing for [employer] tomorrow to ask for [place]. 07/06/18 19:20 Psychosis: Continued gradual improvement. Stipulated to meds. WIll CCM. 07/07/18 15:39 Psychosis: Stabilizing. Not ready for d/c due to continued intrusive delusions. Will [facility]. 07/08/18 15:37 Psychosis: Gradual improvement. CCM. Likely d/c next week if he improves and becomes accepting of d/c plan inc: help from family. 07/09/18 18:23 Psychosis: May be approaching baseline. Will [facility], continue d/c planning. Day #2 of increased Risperdal. 07/12/18 14:13 Psychosis: Continued gradual improvement. CCM. Continue d/c planning which is going to be a challenge at this point. Will "override" pt's refusal to allow us to communicate with his mother due to his ongoing incapacity and the basis of his objection in paranoid delusions. Will only utilize this to find out if she can be a resource for him at d/c which is clearly in his best interest at this time as she is his only other support. 07/13/18 21:00 Psychosis: Much improved. [facility]. Finalize d/c plan, likely to mother's. Will then d/c [facility] due to inability to transfer unless arrangements can be made with [facility]. 07/14/18 16:57 Psychosis: Approaching baseline. CCM. 07/15/18 21:04 Psychosis: Continued improvement. MUCH improved over admission. [facility]. Family meeting tomorrow with possible d/c following. Subjective: Pt seen, discussed with staff. No change in clinical condition. Interactive and appropriate with staff and peers. [facility]'s liaison able to make arrangements for f/u in after all. Objective: Vital Signs Temp Pulse Resp BP Pulse Ox 36.5 C 68 16 103/57 L 93 07/15/18 06:00 07/15/18 06:00 07/15/18 06:00 07/15/18 06:00 07/15/18 06:00 MSE: Calm, coop. Affect is blunted, stable, approp. Mood is "good." TP is linear. TC reveals continued paranoid delusions, less intrusive. - Time Spent With Patient Time Spent With Patient: 15" ICD10 Worksheet Patient Problems: Problems Problem Status Onset Schizophrenia Acute
[2018-07-16] MEDS: RISPERIDONE 1 MG ODT TAB SL SCH (08:00)
[2018-07-16] MEDS: buPROPion XL 150 MG TAB PO SCH (08:00)
[2018-07-16] MEDS: OMEGA-3 FATTY ACIDS 1,000 MG CAP PO SCH (08:00)
[2018-07-16] MEDS: NICOTINE 21 MG/24 HR PATCH TD SCH (08:01)
[2018-07-16] MEDS: MULTIVITAMINS 1 EACH TAB PO SCH (08:01)
--- NOTE | 2018-07-16 16:01 | ASMTBHFAM ---
Notes Note: Notes: The patient participated in a family meeting with his mother, the psychiatrist, and this television script writer. The patient was appropriate and cooperative. We discussed the patient returning home to live with his mother in [place] and transferring his services from [facility] to [facility]. This television script writer contacted and spoke with Kandace from [facility] and Genet from [facility]; an [facility] psychiatrist will review the clinicals and determine whether or not the patient is accepted. Natalie Fairfieldalessio with notify [facility] and [facility] on 07/19 or 07/20 of their decision. Natalie Fairfieldalessio Contacts: Annette, Vivian, Date Signed: 07/16/2018 04:00 PM Electronically Signed By:Joanne Charlton
[2018-07-16] MEDS: RISPERIDONE 2 MG ODT TAB SL SCH (20:03)
[2018-07-16] MEDS: PATCH REMOVAL 1 EA PATCH TD SCH (22:13)
[2018-07-17] MEDS: OMEGA-3 FATTY ACIDS 1,000 MG CAP PO SCH (07:59)
[2018-07-17] MEDS: RISPERIDONE 1 MG ODT TAB SL SCH (07:59)
[2018-07-17] MEDS: NICOTINE 21 MG/24 HR PATCH TD SCH (07:59)
[2018-07-17] MEDS: MULTIVITAMINS 1 EACH TAB PO SCH (07:59)
[2018-07-17] MEDS: buPROPion XL 150 MG TAB PO SCH (07:59)
--- NOTE | 2018-07-17 15:34 | ASMTBHDC ---
Notes Note: Notes: CC met with pt briefly. Pt. requested to be discharged Thursday, as that is the day his mom has off and can pick him up. Pt. stated he believed the MD was going to drop him [facility] and stipulated COM documents prior to pt's discharge. Pt. requested both of these documents be dropped and pt allowed to discharge on Thursday. Pt. stated he has an agreement with his mom for him to take his medications regularly after discharge. CC instructed pt to talk with weekday MD. Pt. agreed with this. Pt. presents as alert, guarded, suspicious, staring eye contact, and unkempt. Staff report pt. sleeping 7 hours and being medication compliant. Date Signed: 07/17/2018 03:33 PM Electronically Signed By:Sapphire Portillo
--- NOTE | 2018-07-17 17:00 | SOAPPROG ---
SOAP Progress Note Assessment/Plan: Assessment: 33 yo man with h/o schizophrenia who has not taken meds in quite awhile. He has been living with [facility] who claims he is afraid of patient's erratic moods and strange behavior. Per Dr. Moore's recent note: 07/12/18 14:13 Psychosis: Continued gradual improvement. CCM. Continue d/c planning which is going to be a challenge at this point. Will "override" pt's refusal to allow us to communicate with his mother due to his ongoing incapacity and the basis of his objection in paranoid delusions. Will only utilize this to find out if she can be a resource for him at d/c which is clearly in his best interest at this time as she is his only other support. 07/13/18 21:00 Psychosis: Much improved. CCM. Finalize d/c plan, likely to mother's. Will then d/c ST due to inability to transfer unless arrangements can be made with [facility]. 07/14/18 16:57 Psychosis: Approaching baseline. CCM. 07/15/18 21:04 Psychosis: Continued improvement. MUCH improved over admission. [facility]. Family meeting tomorrow with possible d/c following. Subjective: Pt seen, discussed with staff. No change in clinical condition. Interactive and appropriate with staff and peers. P's liaison able to make arrangements for f/u in after all. PLAN: 07/17/18 16:56 1. Patient continues to demonstrate improvement. He is better groomed and wearing appropriate clothes. 2. says patient is planning to live with [facility] in [facility] after discharge. P will transfer ST to [facility] in [facility]. 3. Patient slept 7 hrs last night and ate 100% of meals today. Subjective: Patient talking on phone with his MOC while pacing the halls. He is dressed more appropriately and presents with better hygiene than last weekend. He is less delusional and paranoid. He denies any SI/HI. Objective: Vital Signs Temp Pulse Resp BP Pulse Ox 36.6 C 81 14 120/54 L 97 07/17/18 06:00 07/17/18 06:00 07/17/18 06:00 07/17/18 06:00 07/17/18 06:00 MSE: Affect: Brighter Mood: "Good" TP: More linear and coherent, better organized TC: Denies any SI/HI, less paranoid Perception: Denies AH/VH, no signs of RIS Insight/Judgment: Improved - Time Spent With Patient Time Spent With Patient: 15" - Pending Discharge Pending Discharge Within 24 Hours: No Pending Discharge Within 48 Hours: No ICD10 Worksheet Patient Problems: Problems Problem Status Onset Schizophrenia Acute
[2018-07-17] MEDS: RISPERIDONE 2 MG ODT TAB SL SCH (20:02)
[2018-07-17] MEDS: PATCH REMOVAL 1 EA PATCH TD SCH (21:09)
[2018-07-18] MEDS: buPROPion XL 150 MG TAB PO SCH (08:26)
[2018-07-18] MEDS: MULTIVITAMINS 1 EACH TAB PO SCH (08:27)
[2018-07-18] MEDS: RISPERIDONE 1 MG ODT TAB SL SCH (08:27)
[2018-07-18] MEDS: OMEGA-3 FATTY ACIDS 1,000 MG CAP PO SCH (08:27)
[2018-07-18] MEDS: NICOTINE 21 MG/24 HR PATCH TD SCH (08:27)
--- NOTE | 2018-07-18 15:57 | SOAPPROG ---
SOAP Progress Note Assessment/Plan: Assessment: 33 yo man with h/o schizophrenia who has not taken meds in quite awhile. He has been living with [facility] who claims he is afraid of patient's erratic moods and strange behavior. Per Dr. Moore's recent note: 07/12/18 14:13 Psychosis: Continued gradual improvement. CCM. Continue d/c planning which is going to be a challenge at this point. Will "override" pt's refusal to allow us to communicate with his mother due to his ongoing incapacity and the basis of his objection in paranoid delusions. Will only utilize this to find out if she can be a resource for him at d/c which is clearly in his best interest at this time as she is his only other support. 07/13/18 21:00 Psychosis: Much improved. CCM. Finalize d/c plan, likely to mother's. Will then d/c [facility] due to inability to transfer unless arrangements can be made with [facility]. 07/14/18 16:57 Psychosis: Approaching baseline. CCM. 07/15/18 21:04 Psychosis: Continued improvement. MUCH improved over admission. [facility]. Family meeting tomorrow with possible d/c following. Subjective: Pt seen, discussed with staff. No change in clinical condition. Interactive and appropriate with staff and peers. P's liaison able to make arrangements for f/u in after all. PLAN: 07/17/18 16:56 1. Patient continues to demonstrate improvement. He is better groomed and wearing appropriate clothes. 2. says patient is planning to live with [facility] in [facility] after discharge. P will transfer [facility] to [facility] in [place]. 3. Patient slept 7 hrs last night and ate 100% of meals today. PLAN: 07/18/18 15:53 1. Patient is compliant with his behavioral support plan. No inappropriate behavior. 2. Patient is stable, no change. 3. Will go to stay in [place] with [facility]. Will f/u with [facility] for outpatient services. 4. [facility] Subjective: Patient took shower this AM. He has been better groomed and more interactive with staff and peers. He is calm and appropriate with staff. He says he is willing to see providers at [facility] when he goes to [facility] to live with his MOC. Objective: Vital Signs Temp Pulse Resp BP Pulse Ox 36.6 C 80 15 112/62 95 07/18/18 06:00 07/18/18 06:00 07/18/18 06:00 07/18/18 06:00 07/18/18 06:00 MSE: Affect: More range Mood: "OK" TP: More linear, goal-directed TC: Denies any SI/HI Insight/Judgment: Improving - Time Spent With Patient Time Spent With Patient: 15" - Pending Discharge Pending Discharge Within 24 Hours: No Pending Discharge Within 48 Hours: No ICD10 Worksheet Patient Problems: Problems Problem Status Onset Schizophrenia Acute
[2018-07-18] MEDS ORDERED: RISPERIDONE ODT 0.5 MG TAB PO SCH (21:00)
[2018-07-18] MEDS: PATCH REMOVAL 1 EA PATCH TD SCH (21:07)
[2018-07-19] MEDS: buPROPion XL 150 MG TAB PO SCH (08:06)
[2018-07-19] MEDS: MULTIVITAMINS 1 EACH TAB PO SCH (08:06)
[2018-07-19] MEDS: OMEGA-3 FATTY ACIDS 1,000 MG CAP PO SCH (08:06)
[2018-07-19] MEDS ORDERED: RISPERIDONE ODT 0.5 MG TAB PO ONE (08:15)
[2018-07-19] MEDS: NICOTINE 21 MG/24 HR PATCH TD SCH (08:32)
[2018-07-19] MEDS: RISPERIDONE 1 MG ODT TAB SL SCH (08:56)
--- NOTE | 2018-07-19 12:14 | ASMTBHDC ---
Notes Note: Notes: The patient participated in a discharge meeting with the provider and this rewriter. The patient is no longer endorsing SI or HI. 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 The patient reported having a therapeutic conversation with his father; remarking that it was the "most supportive" his father has been in the last several months. The patient reported that his transition to [place] will support him to eventually return to [place] as well as the property he shares with his father. The patient plans to continue to repair their relationship. The patient discussed his understanding of the short term certification and court ordered medications. He was notified of the transfer to [facility] and his upcoming intake appointment with the provider. The patient agreed to follow up with his mother, hospital chief financial officer, and insurance. Date Signed: 07/19/2018 12:13 PM Electronically Signed By:Joanne Charlton
[2018-07-19] MEDS ORDERED: RISPERIDONE 1 MG ODT TAB PO SCH (21:00)
[2018-07-19] MEDS: PATCH REMOVAL 1 EA PATCH TD SCH (21:17)
--- NOTE | 2018-07-19 21:42 | SOAPPROG ---
SOAP Progress Note Assessment/Plan: Assessment: 33yo with schizoaffective d/o, on Risperdal, STC Taking meds, denies any side effects to medication. Asked about changing all to HS dosing. States he had good conversation with his father over the weekend, and felt supported by him, and his encouragement to maintain MH compliance for stability , with plan to show he can do well while staying with mother, attend treatment, take meds "and then he will let me come back." Good ec, nml psychom activity, nml speech rate, vol. Mood "fine", affect euthymic. Denied AH/VH. Thought process/content linear, reality-based, no delusions, no other evid of psychosis. 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 Has been building house with his father but father won't allow return until stable. PLAN -Anticipated d/c today once mental health center in [facility] accepted transfer of STC, but mother not able to come from [place] to pick and shovel man today, and pt added that he needed to get car from [place] and his belongings. With all this, will need to change psych appt in [place] [facility] from 9am Tues. CC changed psych appt to Thu. -Risperdal M-tab 2mg hs and 1mg qam, change to 3mg HS at d/c. -Cont Wellbutrin XL 300mg qd Nicotine 21mcg patch qd, MVI qd -Plan d/c in AM after mother arrives. Grandfather driving. Pt and family and cc coordinating how to get belongings from father's home. -Txf STC to [facility] [place] [facility] at time of d/c. Reviewed implications with pt and need to maintain compliance. 07/19/18 21:45 Objective: Vital Signs Temp Pulse Resp BP Pulse Ox 36.6 C 75 14 105/56 L 95 07/19/18 06:00 07/19/18 06:00 07/19/18 06:00 07/19/18 06:00 07/19/18 06:00 - Pending Discharge Pending Discharge Within 24 Hours: Yes Pending Discharge Date: 07/20/18 Pending Discharge Time: 11:00 ICD10 Worksheet Patient Problems: Problems Problem Status Onset Schizophrenia Acute
[2018-07-20 06:46] VITALS: BP 117/59
[2018-07-20] MEDS: OMEGA-3 FATTY ACIDS 1,000 MG CAP PO SCH (08:03)
[2018-07-20] MEDS: MULTIVITAMINS 1 EACH TAB PO SCH (08:03)
[2018-07-20] MEDS: NICOTINE 21 MG/24 HR PATCH TD SCH (08:04)
[2018-07-20] MEDS: buPROPion XL 150 MG TAB PO SCH (08:04)
--- NOTE | 2018-07-20 17:57 | SOAPPROG ---
SOAP Progress Note Assessment/Plan: Assessment: 33yo with schizoaffective d/o, on Risperdal, STC Taking meds, denies any side effects to medication. Asked about changing all to HS dosing. States he had good conversation with his father over the weekend, and felt supported by him, and his encouragement to maintain MH compliance for stability , with plan to show he can do well while staying with mother, attend treatment, take meds "and then he will let me come back." Good ec, nml psychom activity, nml speech rate, vol. Mood "fine", affect euthymic. Denied AH/VH. Thought process/content linear, reality-based, no delusions, no other evid of psychosis. Denied SI/HI and expresses future- oriented thinking with shorter-term plans to get employment in 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 Has been building house with his father but father won't allow return until stable. PLAN -Anticipated d/c today once mental health center in [facility] accepted transfer of STC, but mother not able to come from [place] to cotton picker today, and pt added that he needed to get car from [place] and his belongings. With all this, will need to change psych appt in [place] [facility] from 9am Tues. CC changed psych appt to Thu. -Risperdal M-tab 2mg hs and 1mg qam, change to 3mg HS at d/c. -Cont Wellbutrin XL 300mg qd Nicotine 21mcg patch qd, MVI qd -Plan d/c in AM after mother arrives. Grandfather driving. Pt and family and cc coordinating how to get belongings from father's home. -Txf STC to [facility] in [place] [facility] at time of d/c. Reviewed implications with pt and need to maintain compliance. 07/20/18 08:52 Objective: Vital Signs Temp Pulse Resp BP Pulse Ox 36.7 C 64 14 117/59 L 97 07/20/18 06:00 07/20/18 06:00 07/20/18 06:00 07/20/18 06:00 07/20/18 06:00 ICD10 Worksheet Patient Problems: Problems Problem Status Onset Schizophrenia Acute
[2018-07-20] MEDS ORDERED: RISPERIDONE 2 MG ODT TAB SL SCH (21:00)
--- NOTE | 2018-07-21 06:00 | BDS ---
DIAGNOSES AT DISCHARGE: Schizophrenia. Chronic cannabis use disorder, severe. BRIEF HISTORY: The patient is a 33-year-old male with a history of recurrent chronic psych osis, exacerbated by heavy chronic cannabis use, although was negative on admission for THC. He was brought to the hospital by police on an M1 after Father obtained a court-ordered evaluation due to re current and severe psychosis. Notably, he had been declining for several weeks and recently lost his job. He had been staying in a basement apartment in his father's home, but had become increasingly agitated, not sleeping, unable to obtain food for himself or support himself financially. He was dis organized in his thoughts and behavior, also becoming increasingly threatening and delusional. He daniel d a belief that his father was not really his father, but "just a jenn named James," reporting that Cinda bhatia had killed his actual father and taken over his body. He also reported on admission that he had fa shioned a spear and believed the spear had some kind of special goode, walking the perimeter around his father's home with his spear in order to protect himself from spiritual beings. Patient's father felt fearful for his life which is why he sought the court order. The patient did not express any i nsight into having mental illness nor requiring treatment, but stated he only used CBD prescribed by his doctor and denied any other forms of THC. HOSPITAL COURSE: The patient was admitted to behavioral health services inpatient on an M1 which was court ordered. He was consistently refusing any medications and was not attending to any ADLs, not having bathed or washed his clothes in quite some time. He continued to express paranoid delusions a nd had disorganized, illogical thought processes, but denied any suicidal or homicidal ideation. He was often isolative, refusing to interact with others or participate in therapy, and refused all medi cations. He was placed on a short-term certification, and given his history and severity of mental i llness, a petition for court-ordered medications was placed. He was offered scheduled Risperdal and p.r.n. Zyprexa, again with refusal of all medication. Court-ordered medication hearing was scheduled . He required a behavioral plan due to lack of behavioral control and defiant attitude towards staff , also engaging in several vandalism behaviors on the unit and bizarre behaviors including using a sh eet under his pants and hanging underwear in his room, writing on brown, flooding bathroom. He respo nded to some degree with behavioral limits. Of note, he did speak with his court-appointed assistant county attorney and stipulated to court-ordered medication. Once he started taking Risperdal M-Tab, he gradually, st eadily, and notably improved. His psychosis was much improved with no longer expressing delusional t houghts, no paranoia. Behaviors notably improved with no further bizarre and acting-out behaviors. He remained compliant with oral Risperdal which was at a total of 3 mg daily, 1 q.a.m. and 2 mg q.h.s . He continued on Wellbutrin XL 300 mg daily throughout his hospital stay. Primary team contacted bonilla is mother in [place]. Father refused to allow him to return home until he showed a signific ant period of stability psychiatrically and medication compliant. He was able to hear this feedback, and arrangements were made with Mother that he go to live with her in [place] and enroll in the mental health system there at [facility] to continue under his short-term certification and cou rt-ordered medication. Court-ordered medications were explained to patient, and he understands that if he is noncompliant with medications or with followup treatment that he could then be rehospitalize d and likely started on injectable medication long-acting. A family meeting was held on 07/16/2018, with Mother and patient. The plan was for discharge at this time, but there was no followup plan in place at the time, not having heard back from [facility] regarding acceptance of certification short term and court-ordered medications. He was, therefore, kept over the weekend with continued stable behaviors and organized linear thoughts with no expressions of delusional thinking or evidence of yury lucinations. Mother was able to pick him up on Thursday morning 07/20. Her father, the patient's gra ndfather, provided transportation. Initial outpatient appointment needed to be rescheduled from 06/29 to 07/21 at 9 a.m. so that he could be discharged into the care of his mother with plan to gather b elongings from Father's home and relocate to [place]. The patient consistently denied any s uicidal or homicidal ideation and did not express any delusional or paranoid thinking. 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 MENTAL STATUS EXAM AT DISCHARGE: The patient is calm, cooperative, good eye contact. Normal speech rate and volume. His mood was "good." Affect was controlled, restricted range, but appropriate to c ontent of conversation. Thoughts were spontaneous and linear, goal directed, and reality based. The re was no expression of delusional or paranoid thinking. He denied any thoughts to harm himself or o thers. There was no expression of Capgras delusions as he expressed on admission. Insight was fair, and judgment was fair. Cognition was conversationally intact. He denied any physical complaints, and there were no acute medical issues throughout hospital stay. He denied any medication side effects, although did request his Risperdal be given at bedtime which w as not unreasonable. He was changed from 1 mg q.a.m. and 2 mg q.h.s. to 3 mg p.o. q.h.s. at the time of discharge. He had apparently been on Wellbutrin XL 300 mg daily throughout the hospital stay, so this was continued. Of note, Dr. Moore provided care for this patient throughout his hospital sta y until 07/16/2018. Please refer to admission behavioral health summaries by Dr. Stephon Moore dated 06/19/2018, for further details of his history on admission. Regarding cannabis use, it was a dvised strongly that the patient did not resume cannabis use due to increased risk of psychosis espec ially in this patient with history of psychosis. He expressed understanding. At the time of dischar paula, Mother reports she felt he was doing well and was ready to take him home and will provide support with medication compliance. He has a followup appointment at 9 a.m. on the day after discharge. ort-term certification was transferred to [facility] with court-ordered medication. Meds are risper idone 3 mg M-Tab called into [facility], #30, no refills. Bupropion XL 300 mg daily, #30, no ref ills called in to pharmacy. /[id number]
== END 2018-07-20 09:05 | disposition home or self-care (01) | DRG 885 ==
LOC: BBEH 18:00
PROVIDERS: ADMIT Psychiatry & Neurology Psychiatry; ATTEND Psychiatry & Neurology Psychiatry
DX: F20.9 Schizophrenia, unspecified (principal); F12.959 Cannabis use, unspecified with psychotic disorder, unspecified; T43.506A Underdosing of unspecified antipsychotics and neuroleptics, initial encounter
CPT/HCPCS: 80305; G0480